=== PATIENT | male | born 1955 | race Caucasian/White ===

== ENCOUNTER 2016-11-29 16:21 | Inpatient (IN) | payer OTHER ==
--- NOTE | 2016-11-29 16:58 | EDPHY ---
H & P Stated Complaint: DIALYSIS, RETAINING FLUID, DIFFICULTY BREATHING HPI/ROS: CHIEF COMPLAINT: Shortness of breath, decreased output on peritoneal dialysis HISTORY OF PRESENT ILLNESS: 2 3 history of increasing shortness of breath. It was mild at 1st and has steadily worsened to moderate or severe. Associated with orthopnea. Able to walk very short distances not have any take a break. There is no chest pain at any time with this. does improve the rest. No fever or chills. No changes in his urine output. Has an extensive medical history including HIV positive, end-stage renal disease on nightly home peritoneal dialysis, hypertension and coronary artery disease. He reports decreased output of his peritoneal dialysis catheter at night over the past 2 days. He feels that it is still working but is not enough fluid out of it. wears daily oxygen by nasal cannula, and hesitant to increase from 2 L to 5 L At all times over the past few days. No fever. No other associated complaints or modifying factors. He has not missed any dialysis. Providers: Nephrology: Dr. Carranza Primary care physician: Dr. Velasquez infectious disease: [place] REVIEW OF SYSTEMS: Ten systems reviewed and are negative unless otherwise noted in the HPI EXAMINATION General Appearance: Alert, no distress Head: normocephalic, atraumatic Eyes: Pupils equal and round, no conjunctival pallor or injection ENT, Mouth: Mucous membranes moist Neck: Normal inspection, supple, non-tender Respiratory: Lungs are clear to all keyes the left. There are absent and diminished breath sounds on the right. No tympany of the right. Daughter percussion on the right. Cardiovascular: Regular rate and rhythm Gastrointestinal: Abdomen is soft and nontender Back: non-tender, no bony abnormalities Neurological: A&O, nonfocal, No pronator drift. Two through 12 grossly intact. Skin: Warm and dry, no rash Extremities: Nontender, 1+ symmetric pedal edema Psychiatric: Mood and affect normal DIFFERENTIAL DIAGNOSES: Including but not limited to pleural effusion, pneumonia, sepsis, renal failure with volume overload, CHF. MDM: Acute right-sided pleural effusion the patient on end-stage renal disease on dialysis. He has not missed any dialysis. He does not have any signs of infection. His labs are abnormal but at baseline for him. He is in no acute distress. He is not requiring BiPAP or CPAP. He is stable on 5 L nasal cannula , normotensive and afebrile. He is HIV positive, but he reports an undetectable viral load recently a normal CD4 count recently. I discussed all these findings with the hospitalist, Dr. Valdez. She will admit the patient and has requested a PCU bed. she has also requested that I contact Nephrology, we have a page and I am awaiting their call. Given the patient's use of Eliquis, this complicates the procedure that he will need, thus Dr. Valdez will discuss with interventional Radiology. I will discuss the case with Nephrology to arrange for dialysis while here. 184 I have discussed the case with on-call Nephrology, Dr. Garcia. He informed me that dialysis may not be available until the morning given the time of day. He will discuss with the resources and determine if they are able to do so tonight. He will arrange for dialysis when available. EKG: Interpreted by Dr. Miller SUPERVISION: Case discussed with attending physician. Source: Patient, Family Exam Limitations: No limitations - Personal History Current Tetanus/Diphtheria Vaccine: Yes Tetanus Vaccine Date: 2014 - Medical/Surgical History Hx Asthma: No Hx Chronic Respiratory Disease: No Hx Diabetes: No Hx Cardiac Disease: Yes Hx Renal Disease: Yes Hx Cirrhosis: No Hx Alcoholism: No Hx HIV/AIDS: Yes Hx Splenectomy or Spleen Trauma: No Other PMH: pmh- htn, hiv+, PD dialysis, [facility] - Social History Smoking Status: Never smoked Constitutional: Initial Vital Signs Temperature (C) 97.9 F 11/29/16 16:23 Heart Rate 77 11/29/16 16:23 Respiratory Rate 16 11/29/16 16:23 Blood Pressure 140/44 H 11/29/16 16:23 O2 Sat (%) 91 L 11/29/16 16:23 O2 Delivery Mode Nasal Cannula O2 (L/minute) 3 Allergies/Adverse Reactions: No Known Allergies Allergy (Unverified 11/29/16 16:28) Home Medications: Medication Instructions Recorded AMITRIPTYLINE HCL 11/29/16 Abacavir 11/29/16 Amlodipine Besylate 11/29/16 Aranesp 11/29/16 Calcitriol 11/29/16 Carvedilol 11/29/16 Eliquis 11/29/16 GABAPENTIN 11/29/16 Lamivudine 11/29/16 Lasix 11/29/16 Losartan Potassium 11/29/16 Oxycodone HCl 11/29/16 Pantoprazole Sodium 11/29/16 RENVELA 11/29/16 Raltegravir 11/29/16 Sensipar 11/29/16 Vitamin D3 11/29/16 Medical Decision Making - Data Points Laboratory Results: Laboratory Results 11/29/16 16:54 11/29/16 16:54 11/29/16 11/29/16 17:02 16:54 WBC 4.70 10^3/uL (3.80-9.50) RBC 3.01 L 10^6/uL (4.40-6.38) Hgb 10.3 L g/dL (13.7-17.5) POC Hgb 10.9 L gm/dL (14.5-17.3) Hct 32.5 L % (40.0-51.0) POC Hct 32 L % (42.8-50.6) MCV 108.0 H fL (81.5-99.8) MCH 34.2 H pg (27.9-34.1) MCHC 31.7 L g/dL (32.4-36.7) RDW 14.2 % (11.5-15.2) Plt Count 224 10^3/uL (150-400) MPV 9.8 fL (8.7-11.7) Neut % (Auto) 48.2 % (39.3-74.2) Lymph % (Auto) 29.1 % (15.0-45.0) Sawyer % (Auto) 13.6 H % (4.5-13.0) Eos % (Auto) 8.3 H % (0.6-7.6) Baso % (Auto) 0.6 % (0.3-1.7) Nucleat RBC Rel Count 0.0 % (0.0-0.2) Absolute Neuts (auto) 2.26 10^3/uL (1.70-6.50) Absolute Lymphs (auto) 1.37 10^3/uL (1.00-3.00) Absolute Monos (auto) 0.64 10^3/uL (0.30-0.80) Absolute Eos (auto) 0.39 10^3/uL (0.03-0.40) Absolute Basos (auto) 0.03 10^3/uL (0.02-0.10) Absolute Nucleated RBC 0.00 10^3/uL (0-0.01) Immature Gran % 0.2 % (0.0-1.1) Immature Gran # 0.01 10^3/uL (0.00-0.10) PT 14.4 SEC (12.0-15.0) INR 1.13 (0.83-1.16) APTT 33.9 SEC (23.0-38.0) VBG Lactic Acid 1.1 mmol/L (0.7-2.1) POC Sodium 142 mEq/L (134-144) Sodium 145 H mEq/L (134-144) POC Potassium 4.0 mEq/L (3.3-5.0) Potassium 4.1 mEq/L (3.5-5.2) POC Chloride 98 mEq/L (96-108) Chloride 98 mEq/L (97-110) Carbon Dioxide 29 mEq/l (22-31) Anion Gap 18 mEq/L (8-16) POC BUN 84 H mg/dL (7-23) BUN 78 H mg/dL (7-23) Creatinine 8.5 H* mg/dL (0.7-1.3) POC Creatinine 8.0 H* mg/dL (0.8-1.5) Estimated GFR 6 Glucose 121 H mg/dL (70-100) POC Glucose 131 H mg/dL (70-100) Calcium 8.9 mg/dL (8.5-10.4) Phosphorus 6.7 H mg/dL (2.5-4.5) Total Bilirubin 0.5 mg/dL (0.1-1.4) Conjugated Bilirubin 0.4 mg/dL (0.0-0.5) Unconjugated Bilirubin 0.1 mg/dL (0.0-1.1) AST 28 IU/L (17-59) ALT 42 IU/L (21-72) Alkaline Phosphatase 188 H IU/L (38-126) NT-Pro-B Natriuret Pep 2830 H pg/mL (0-125) Total Protein 7.7 g/dL (6.3-8.2) Albumin 3.8 g/dL (3.5-5.0) Point of Care Test Results: 11/29/16 17:02 POC Sodium 142 POC Potassium 4.0 POC Chloride 98 POC BUN 84 H POC Creatinine 8.0 H* POC Glucose 131 H Departure - Departure Clinical Impression: End stage renal disease on dialysis, Dyspnea, Volume overload Condition: Good
[2016-11-29 17:15] LABS: % IMMATURE GRANULYOCYTES 0.2 % (0.0-1.1); ABSOLUTE IMMATURE GRANULOCYTES 0.01 10^3/uL (0.00-0.10); ADD DIFF? NO; ADD MORPH? NO; ADD SCAN? NO; ATYPICAL LYMPHOCYTE FLAG 0 (0-99); FRAGMENT RBC FLAG 0 (0-99); HEMATOCRIT 32.5 % (40.0-51.0); HEMOGLOBIN 10.3 g/dL (13.7-17.5); LEFT SHIFT FLG 0 (0-99); LIPEMIA HEMOLYSIS FLAG 80 (0-99); MEAN CELL HEMOGLOBIN 34.2 pg (27.9-34.1); MEAN CELL HEMOGLOBIN CONCENTR. 31.7 g/dL (32.4-36.7); MEAN PLATELET VOLUME 9.8 fL (8.7-11.7); PLATELET CLUMPS FLAG 20 (0-99); PLATELET COUNT 224 10^3/uL (150-400); RED BLOOD CELL COUNT 3.01 10^6/uL (4.40-6.38); RED CELL DISTRIBUTION WIDTH 14.2 % (11.5-15.2)
--- NOTE | 2016-11-29 17:17 | CPEKG ---
Heart Rate: 67 RR Interval: 896 P-R Interval: 244 QRSD Interval: 124 QT Interval: 440 QTC Interval: 465 P [place]: 37 QRS [place]: -3 T Wave [place]: 36 EKG Severity - ABNORMAL ECG - EKG Impression: SINUS RHYTHM EKG Impression: FIRST DEGREE AV BLOCK EKG Impression: NONSPECIFIC INTRAVENTRICULAR CONDUCTION DELAY EKG Impression: PROBABLE LEFT VENTRICULAR HYPERTROPHY Electronically Signed By: Maury Miller 29-Nov-2016 20:49:51
[2016-11-29 17:26] LABS: INR 1.13 (0.83-1.16); PROTIME(PATIENT) 14.4 SEC (12.0-15.0)
[2016-11-29 17:27] LABS: APTT 33.9 SEC (23.0-38.0)
[2016-11-29 17:30] LABS: ANION GAP 18 mEq/L (8-16); CALCIUM 8.9 mg/dL (8.5-10.4); CARBON DIOXIDE 29 mEq/l (22-31); CHLORIDE 98 mEq/L (97-110); GLOMERULAR FILTRATION RATE 6; GLUCOSE 121 mg/dL (70-100); POTASSIUM 4.1 mEq/L (3.5-5.2); SODIUM 145 mEq/L (134-144); TOTAL PROTEIN 7.7 g/dL (6.3-8.2)
[2016-11-29 17:31] LABS: ALANINE AMINOTRANSFERASE 42 IU/L (21-72); ALBUMIN 3.8 g/dL (3.5-5.0); ALKALINE PHOSPHATASE 188 IU/L (38-126); ASPARTATE AMINOTRANSFERASE 28 IU/L (17-59); BILIRUBIN,TOTAL 0.5 mg/dL (0.1-1.4); BILIRUBIN-CONJUGATED 0.4 mg/dL (0.0-0.5); BILIRUBIN-UNCONJUGATED 0.1 mg/dL (0.0-1.1)
--- NOTE | 2016-11-29 17:46 | DX ---
AP Portable Chest November 29, 2016 Clinical Indications: Dyspnea. Comparison: July 18, 2015. Findings: Compared to the prior examination, cardiomegaly has increased significantly. There is a n ew large right pleural effusion, with adjacent compressive atelectasis or consolidation. There is so me retrocardiac atelectatic change. Rounded calcification in the upper abdomen versus cardiac calcif ication is unchanged and probably benign. Interval removal of the dialysis catheter and PIC line. Impression: Progressive congestive heart failure, with a large right effusion and atelectasis. Critical results were relayed by Dr. Brice to Ean Bedoya PA-C, on November 29, 2016 at 1722 hours . E:MELANIE/anne marie
[2016-11-29 17:47] LABS: CREATININE 8.5 mg/dL (0.7-1.3)
[2016-11-29] MEDS ORDERED: ACETAMINOPHEN 325 MG TAB PO PRN (20:46)
[2016-11-29] MEDS ORDERED: HYDROmorphONE/DILAUDID 1 MG/ML SYR IVP PRN (20:46)
[2016-11-29] MEDS ORDERED: ONDANSETRON 4 MG/2 ML VIAL IVP PRN (20:46)
[2016-11-29] MEDS ORDERED: ALBUTEROL 3 ML DEYVIAL IH PRN (20:46)
[2016-11-29] MEDS ORDERED: ONDANSETRON DISINTEGRATING 4 MG TAB PO PRN (20:46)
[2016-11-29] MEDS ORDERED: FUROSEMIDE 100 MG/10 ML VIAL IVP ONE (20:56)
[2016-11-29] MEDS ORDERED: NON-FORMULARY NEW DRUG (Losartan Potassium [Cozaar] 100 MG) PO SCH (21:00)
[2016-11-29] MEDS ORDERED: ABACAVIR SULFATE 300 MG PO SCH (21:00)
[2016-11-29] MEDS ORDERED: RALTEGRAVIR 400 MG TAB PO SCH (21:00)
[2016-11-29] MEDS ORDERED: LAMIVUDINE PO SCH (21:00)
[2016-11-29] MEDS ORDERED: NON-FORMULARY NEW DRUG (Carvedilol [Coreg] 12.5 MG) PO SCH (21:00)
[2016-11-29] MEDS ORDERED: hydrALAZINE 20 MG/ML VIAL IVP PRN (21:22)
[2016-11-29] MEDS: amLODIPine BESYLATE 5 MG TAB PO SCH (21:31)
[2016-11-29] MEDS: LOSARTAN POTASSIUM 50 MG TAB PO SCH (21:31)
[2016-11-29] MEDS: GABAPENTIN 300 MG CAP PO SCH (21:32)
[2016-11-29] MEDS: CARVEDILOL 6.25 MG TAB PO SCH (21:32)
[2016-11-29] MEDS: PANTOPRAZOLE SODIUM 40 MG TAB PO SCH (21:32)
--- NOTE | 2016-11-29 22:15 | GHP ---
[f rep st] HISTORY AND PHYSICAL DATE OF ADMISSION: 11/29/2016 CHIEF COMPLAINT: Shortness of breath. HISTORY OF PRESENT ILLNESS: Mr. Thomas is a 61-year-old male with a history of end-stage renal disease, coronary artery disease, hypertension, and HIV who presents to the emergency department with worsening shortness of breath over the past several days. He normally uses 2 L of oxygen by nasal cannula at home but has recently required up to 5 L/minute. He is followed by Dr. Carranza at [facility] for his ESRD and uses nightly home peritoneal dialysis for volume management. However, over the past several days, he has not been having appropriate output from his peritoneal dialysis catheter. His weight is up at least 7 pounds from his dry weight of 147 lbs. He has developed increasing shortness of breath and ultimately presents to the emergency department today for evaluation. He denies chest pain. He denies fevers or chills. He does have a chronic cough which is nonproductive. He denies abdominal pain, nausea, vomiting, or diarrhea. In the emergency department, he was found to have a large right pleural effusion and is admitted to the hospital for further management. PAST MEDICAL HISTORY: 1. End-stage renal disease, on peritoneal dialysis. 2. History of atrial fibrillation. 3. History of CVA. 4. Chronic anticoagulation on Eliquis. 5. HIV. 6. Hypertension. 7. Coronary artery disease. 8. History of systolic heart failure. 9. Hypertensive cardiomyopathy. PAST SURGICAL HISTORY: Peritoneal dialysis catheter placement. MEDICATIONS: Please see [facility] for complete updated outpatient medication list. ALLERGIES: He has no known drug allergies. FAMILY HISTORY: Reviewed and is noncontributory. SOCIAL HISTORY: The patient lives at home with his . He is a lifetime nonsmoker. He denies alcohol or drug use. REVIEW OF SYSTEMS: A 10-point review of systems was performed and is negative except as per HPI. PHYSICAL EXAMINATION: VITAL SIGNS: Upon my evaluation, temperature is 36.4, blood pressure 190/85, heart rate 77, respiratory rate 18. He is 94% on 5 L of oxygen by nasal cannula. GENERAL: The patient is awake, alert, oriented, and in no acute distress. HEENT: Head is atraumatic, normocephalic. Pupils equal , round, reactive to light. Extraocular muscles intact. Oropharynx is clear. Mucous membranes are moist. NECK: Supple. JVD is present. HEART: Regular rate and rhythm. LUNGS: Diminished on the right side. Clear on the left. ABDOMEN: Soft, protuberant, nontender with moderate distention. Normoactive bowel sounds are present. EXTREMITIES: He has trace bilateral lower extremity edema. NEUROLOGIC: Grossly nonfocal. LABORATORY DATA: CBC reveals a normal white blood cell count of 4.7, hemoglobin 10.3, hematocrit 32.5, platelets of 224. There is no neutrophilia. INR is 1.13. Lactic acid 1.1. Complete metabolic panel is remarkable for a sodium of 145, BUN 78, creatinine 8.5, blood sugar is 121. Alkaline phosphatase is elevated at 188, NT proBNP 2830. Chest x-ray: Reveals a new large right pleural effusion with possible adjacent compressive atelectasis versus consolidation. Moderate cardiomegaly is noted which is increased from prior and suggestive of progressive congestive heart failure. EKG shows normal sinus rhythm without ST-segment or T-wave changes suggestive of acute ischemia. ASSESSMENT AND PLAN: Mr. Thomas is a 61-year-old male with history of end- stage renal disease, on peritoneal dialysis who presents to the emergency department increasing shortness of breath and is admitted for further management. 1. Acute on chronic hypoxemic respiratory failure. This is likely multifactorial including acute on chronic systolic heart failure and malfunctioning peritoneal dialysis system, with a new large right pleural effusion. I have low suspicion for an infectious etiology, given that he is afebrile, has a normal white count, and a normal lactate. I query if he has had some peritoneal fluid migrate into his right hemithorax. It seems unusual to have a unilateral pleural effusion in the setting of acute heart failure. He certainly needs a thoracentesis. I have discussed the case with our interventional radiologist, and since the patient did take a dose of Eliquis this morning, in weighing the risk and benefit, we elected to delay his thoracentesis until the morning at which point he will be 24 hours off Eliquis. Thoracentesis and fluid analysis, including cytology, are ordered. Should he develop fevers or evidence of infection, would start antibiotics. I am going to give him 120 mg of IV Lasix now, monitor I&O's and daily weights. His Eliquis is held. Cont supplemental oxygen as needed. 2. End-stage renal disease with peritoneal dialysis catheter which has been malfunctioning. He does make some urine, <1L per day. I discussed the case with grain operations manager Olap Developer, Dr. Garcia, and due to his Eliquis use, it is not recommended to proceed with central venous access for emergent dialysis. He will be seen by Nephrology in the morning and may need to transition to hemodialysis. As above, we will give IV Lasix tonight. Renal is aware of his status. 3. History of atrial fibrillation with a prior stroke as above. Patient is on Eliquis. He has a CHADS-VASc score of 4 which gives him an 8.5% annual stroke risk. We discussed stroke risk versus risk of respiratory failure and ultimately the patient is in agreement with holding his Eliquis tonight in preparation for a thoracentesis in the morning. He is rate controlled on carvedilol, and he is in normal sinus rhythm at the time of presentation. 4. HIV positive. This broadens the differential for his pleural effusion though he does not appear infected. The patient reports having recently had a normal CD4 count. Will send a CD4 T lymphocyte level. He is followed closely by Infectious Disease at OSH. Will continue his outpatient HAART. 5. Hypertension. The patient is quite hypertensive on admission with a blood pressure of 190 systolic. He is due for several of his antihypertensive medications this evening, so we will give these and we will also add p.r.n. hydralazine as needed. 6. History of coronary artery disease. This is stable. The patient is chest pain-free and has a reassuring EKG. 7. Chronic indwelling Badillo catheter. The patient has a plan for placement of a suprapubic catheter later this week and was going to hold his Eliquis for that purpose with a planned heparin bridge. This may need to be delayed depending on the course of his hospitalization. He has no symptoms suggestive of acute urinary tract infection. 8. DVT prophylaxis. We will place SCDs for now. As above, Eliquis is held. CODE STATUS: Patient is full code. DISPOSITION: Patient is admitted to inpatient status and will likely require greater than 48 hours hospitalization for ongoing management of his acute hypoxemic respiratory failure and new right pleural effusion. /[id number]/MODL MTDD
[2016-11-29] MEDS: RALTEGRAVIR 400 MG TAB PO SCH (23:16)
[2016-11-29] MEDS: ABACAVIR SULFATE 300 MG PO SCH (23:16)
[2016-11-29] MEDS: AMITRIPTYLINE HCL 50 MG TAB PO SCH (23:17)
[2016-11-29] MEDS: CINACALCET HCL 30 MG TAB PO SCH (23:18)
[2016-11-30] MEDS ORDERED: LAMIVUDINE PO SCH ×2 (00:50→21:00)
[2016-11-30] MEDS: LAMIVUDINE 10 MG/ML PO SCH ×2 (01:57→20:36)
[2016-11-30 05:07] LABS: % IMMATURE GRANULYOCYTES 0.2 % (0.0-1.1); ABSOLUTE IMMATURE GRANULOCYTES 0.01 10^3/uL (0.00-0.10); ADD DIFF? NO; ADD MORPH? NO; ADD SCAN? NO; ATYPICAL LYMPHOCYTE FLAG 10 (0-99); FRAGMENT RBC FLAG 0 (0-99); HEMATOCRIT 27.5 % (40.0-51.0); HEMOGLOBIN 8.6 g/dL (13.7-17.5); LEFT SHIFT FLG 0 (0-99); LIPEMIA HEMOLYSIS FLAG 80 (0-99); MEAN CELL HEMOGLOBIN 34.4 pg (27.9-34.1); MEAN CELL HEMOGLOBIN CONCENTR. 31.3 g/dL (32.4-36.7); MEAN PLATELET VOLUME 9.7 fL (8.7-11.7); PLATELET CLUMPS FLAG 10 (0-99); PLATELET COUNT 187 10^3/uL (150-400); RED CELL DISTRIBUTION WIDTH 14.3 % (11.5-15.2)
[2016-11-30 05:16] LABS: INR 1.25 (0.83-1.16); PROTIME(PATIENT) 15.7 SEC (12.0-15.0)
[2016-11-30 05:24] LABS: ALANINE AMINOTRANSFERASE 37 IU/L (21-72); ALKALINE PHOSPHATASE 169 IU/L (38-126); ANION GAP 11 mEq/L (8-16); ASPARTATE AMINOTRANSFERASE 27 IU/L (17-59); BILIRUBIN,TOTAL 0.4 mg/dL (0.1-1.4); CALCIUM 8.3 mg/dL (8.5-10.4); CARBON DIOXIDE 31 mEq/l (22-31); CHLORIDE 101 mEq/L (97-110); GLOMERULAR FILTRATION RATE 6; GLUCOSE 84 mg/dL (70-100); LACTATE DEHYDROGENASE 378 IU/L (313-618); MAGNESIUM 2.5 mg/dL (1.6-2.3); POTASSIUM 4.2 mEq/L (3.5-5.2); SODIUM 143 mEq/L (134-144); TOTAL PROTEIN 6.3 g/dL (6.3-8.2)
[2016-11-30 05:28] LABS: CREATININE 9.1 mg/dL (0.7-1.3)
[2016-11-30] MEDS: SEVELAMER HCL 800 MG TAB PO SCH ×3 (07:52→17:53)
[2016-11-30] MEDS: GABAPENTIN 300 MG CAP PO SCH ×2 (07:53→20:33)
[2016-11-30] MEDS: amLODIPine BESYLATE 5 MG TAB PO SCH ×2 (07:53→20:34)
[2016-11-30] MEDS: FUROSEMIDE 80 MG TAB PO SCH ×2 (07:53→15:46)
[2016-11-30] MEDS: PANTOPRAZOLE SODIUM 40 MG TAB PO SCH ×2 (07:54→20:34)
[2016-11-30] MEDS: CARVEDILOL 6.25 MG TAB PO SCH ×2 (07:54→20:35)
[2016-11-30] MEDS: RALTEGRAVIR 400 MG TAB PO SCH ×2 (07:57→20:36)
[2016-11-30] MEDS: ABACAVIR SULFATE 300 MG PO SCH ×2 (07:57→20:35)
[2016-11-30] MEDS ORDERED: NON-FORMULARY NEW DRUG (Sevelamer Carbonate [Renvela] 800 MG) PO SCH (08:00)
[2016-11-30] MEDS ORDERED: LIDOCAINE 1% 30 ML SDV ONE (09:55)
[2016-11-30] MEDS ORDERED: NA BICARBONATE 50 MEQ/50 ML VIAL ONE (09:56)
--- NOTE | 2016-11-30 10:01 | ECHO ---
[id number] + + [id number] : : [place] [address] : : [phone] + Adult Echocardiographic Report + ------+ :Name: ALETHEA JADE DStudy Date: 11/30/2016 07:32 AM : : Hospital Admission Number: [id number] Locatio n: 211: :: 1955 Gender: Male Height: 69 in : :Age: 61 yrs Race: WH Weight: 155 lb : :Reason For Study: Eval LV Fx : : BSA: 1.9 meters 2 : :History: SOB, Decreased Sat's, Pleural Effusion : + ------+ MMode/2D Measurements & Calculations IVSd: 2.0 cm LVIDd: 5.3 cm FS: 40.7 % MV Diam: 3.0 cm LVPWd: 1.8 cm LVIDs: 3.1 cm EDV(Teich): 135.7 ml ESV(Teich): 39.2 ml EF(Teich): 71.1 % Ao root diam: 3.1 cm LVOT diam: 2.1 cm ACS: 2.1 cm LVOT area: 3.5 cm2 LA dimension: 4.2 cm Normal Measurement Values: + + :LVIDd (3.5-5.7cm) IVSd (0.6-1.1cm) LVPWd (0.6-1.1cm) Aortic Root (2.0-3.7cm)Left Atrium (1.5-4.0cm): :LV Vol(d) (76-115ml) LV Vol(s) (29-48ml) Ejec Fraction (50-65%)PV Dallin (0.6- 1.2m/s) TV Dallin (0.4-1.0m/s) : :MV E Dallin (0.8-1.0m/s)MV A Dallin (0.3-1.0m/s)LVOT Dallin (0.7-1.2m/s) Asc Ao Dallin ( 0.9-1.8m/s) : + + Doppler Measurements & Calculations MV V2 max: Ao V2 max: LV V1 mean PG: MR max dallin: 186.0 cm/sec 177.1 cm/sec 2.5 mmHg 538.0 cm/sec MV max P.8 mmHg Ao max PG: LV V1 mean: MR max PG: MV V2 mean: 12.5 mmHg 72.8 cm/sec 115.8 mmHg 108.1 cm/sec Ao mean PG: LV V1 VTI: MV mean P.9 mmHg 6.6 mmHg 26.9 cm MV V2 VTI: 33.5 cm Ao V2 mean: MV area (1 diam): 119.9 cm/sec 7.1 cm2 Ao V2 VTI: 36.7 cm KENYA(I,D): 2.5 cm2 MVA(VTI): 2.8 cm2 MV Flow area(1diam): 7.1 cm2 MR(RF 1 diam): 6.6 % SV(MV 1 diam): PA V2 max: TR max dallin: 236.7 ml 153.4 cm/sec 348.8 cm/sec SI(MV 1 diam): PA max PG: TR max P.7 ml/m2 9.4 mmHg 48.7 mmHg SV(LVOT): 93.2 ml RAP systole: 5.0 mmHg RVSP(TR): 53.7 mmHg RF(MV,Ao)(1 diam): - 0.15 RF(MV,LVOT)(1diam): 0.61 Left Ventricle The left ventricle is normal in size. There is moderate concentric left ventricular hypertrophy. The left ventricular ejection fraction is normal. There is Doppler evidence for diastolic dysfunction. Ejection Fraction = 72%. No regional wall motion abnormalities noted. Right Ventricle The right ventricle is normal in size and function. Atria The left atrium is mild to moderately dilated. The right atrium is mild to moderately dilated. Known PFO from [place]. Mitral Valve There is mild mitral annular calcification. There is no evidence of mitral valve prolapse. There is no mitral valve stenosis. There is mild mitral regurgitation. Tricuspid Valve Normal tricuspid valve. There is mild tricuspid regurgitation. Right ventricular systolic pressure is 53mmHg. There is Doppler evidence for moderate pulmonary hypertension. Aortic Valve The aortic valve is trileaflet. There is no aortic stenosis. There is no aortic insufficiency. Pulmonic Valve The pulmonic valve is normal in structure and function. Great Vessels The aortic root is normal size. Pericardium/Pleural There is no pericardial effusion. There is a moderate pleural effusion. Conclusion A complete two-dimensional transthoracic echocardiogram was performed (2D, M-mode, Doppler and color flow Doppler). There is moderate concentric left ventricular hypertrophy. The left ventricular ejection fraction is normal. There is Doppler evidence for diastolic dysfunction. Ejection Fraction = 72%. No regional wall motion abnormalities noted. The left atrium is mild to moderately dilated. The right atrium is mild to moderately dilated. Known PFO from [place] There is mild mitral regurgitation. There is mild tricuspid regurgitation. Right ventricular systolic pressure is 53mmHg. There is Doppler evidence for moderate pulmonary hypertension. The aortic valve is trileaflet. There is no aortic insufficiency. The pulmonic valve is normal in structure and function. There is no pericardial effusion. There is a moderate pleural effusion. Final Reading Physician: Axel Celaya signed on 11/30/2016 10:00 AM Ordering Physician: Valeria Valdez Performed By: Samy Gonzalez, CS
[2016-11-30 12:34] LABS: LD, PLEURAL FLUID 290 IU/L
--- NOTE | 2016-11-30 12:44 | SOAPPROG ---
SOAP Progress Note Assessment/Plan: Assessment:Plan: ESRD on PD with recurrent R pleural effusion -had R VATS pleurodesis back on 05/26/2014 -fluid does not have high glucose level that one would expect from his dialysis -his presentation does not appear to me to be related to primary failure of his peritoneal membrane, especially with the fluid being confined to the R hemithorax -will continue his current PD -he will need surgical consultation with Dr. Sloan for definitive Rx of this problem given his past history. -I do not think that change of modality to hemodialysis would alter this issue 11/30/16 12:41 Subjective: SOB Objective: Vital Signs Temp Pulse Resp BP Pulse Ox 36.4 C 83 18 157/72 H 89 L 11/30/16 08:29 11/30/16 08:29 11/30/16 08:29 11/30/16 08:29 11/30/16 08:29 Laboratory Results 11/30/16 04:55 11/30/16 04:55 11/29/16 11/30/16 12/01/16 05:59 05:59 05:59 Intake Total 150 Output Total 250 150 Balance -100 -150 PT 15.7 SEC (12.0-15.0) H 11/30/16 04:55 INR 1.25 (0.83-1.16) H 11/30/16 04:55 Physical Exam - Physical Exam General Appearance: WD/WN, alert, mild distress EENT: normal ENT inspection Neck: normal inspection Respiratory: lungs clear (on left), decreased breath sounds (throughout Right chest) Cardiac/Chest: other (irreg) Abdomen: normal bowel sounds, non-tender, soft, other (exit site perfect) Extremities: No swelling ICD10 Worksheet Patient Problems: Problems Problem Status Diagnosed Dyspnea Acute End stage renal disease on dialysis Acute Volume overload Acute Afib Acute CHF (congestive heart failure) Acute Neuropathy Acute Pleural effusion on right Acute Pneumonia Acute
--- NOTE | 2016-11-30 13:11 | HOSPPROG ---
Hospitalist Progress Note Assessment/Plan: DIAGNOSIS: # ACUTE HYPOXEMIC RESPIRATORY FAILURE DUE TO RECURRENT LARGE R PLEURAL EFFUSION , WHICH HAS BEEN CHRONIC . -the patient does not have significant signs of fluid accumulation other than pleural effusion, so this is not a matter of volume overload per se -previous history of VATS/pleurodesis on the right by Dr. Sloan; in the past trial of switching to hemodialysis did not result in significant improvement in the pleural effusion -Dr. Watson feels that this is not due to dialysis related issues; current sample of his pleural fluid is NOT consistent with leak of dialysis fluid across the diaphragm -thoracentesis has been done on the right today # END-STAGE RENAL DISEASE ON PERITONEAL DIALYSIS FOR 3-1/2 YEARS # CHRONIC ATRIAL FIBRILLATION, CONTROLLED # CORONARY ARTERY DISEASE, STABLE # CHRONIC HIV INFECTION ON ANTI-RETROVIRAL PLANS: -continue peritoneal dialysis at this time -Consultation with Dr. Sloan -continue cardiac and HIV meds I have discussed the patient's condition and care plan in detail Dr. Alexis Watson. I will review his situation with Dr. Emmanuel Sloan today. SUBJECTIVE: Still with shortness of breath when I visited him prior to his thoracentesis, No fever no pain OBJECTIVE Vitals reviewed: Stable overall but using 5-6 L of nasal cannula oxygen hospital monitor, my personal review: Exam: alert oriented skin warm dry color ok resps mildly labored lungs decreased BSs on the right heart regular abd soft nondistended nontender, bowel sounds present limbs warm, no edema iv site ok Objective: Vital Signs Temp Pulse Resp BP Pulse Ox 36.8 C 76 17 127/64 H 93 11/30/16 12:00 11/30/16 12:00 11/30/16 12:00 11/30/16 12:00 11/30/16 12:00 Laboratory Results 11/30/16 04:55 11/30/16 04:55 11/29/16 11/30/16 12/01/16 06:59 06:59 06:59 Intake Total 150 Output Total 250 150 Balance -100 -150 PT 15.7 SEC (12.0-15.0) H 11/30/16 04:55 INR 1.25 (0.83-1.16) H 11/30/16 04:55 ICD10 Worksheet Patient Problems: Problems Problem Status Diagnosed Dyspnea Acute End stage renal disease on dialysis Acute Volume overload Acute Afib Acute CHF (congestive heart failure) Acute Neuropathy Acute Pleural effusion on right Acute Pneumonia Acute
--- NOTE | 2016-11-30 13:47 | GCON ---
[f rep st] CONSULTATION NEPHROLOGY CONSULTATION. DATE OF CONSULTATION: 11/30/2016 REASON FOR ADMISSION: 1. End-stage renal disease on peritoneal dialysis. 2. Shortness of breath with a large right pleural effusion. RECOMMENDATIONS: 1. Thoracentesis. 2. Evaluate pleural fluid to see if this represents accumulation of dialysate in the right pleural space. 3. Consider surgical consultation for pleurodesis if indicated. 4. Consider backup hemodialysis if it appears patient is unable to tolerate ongoing peritoneal dialysis. HISTORY OF PRESENT ILLNESS: The patient is a very pleasant 61-year-old gentleman I have been asked to consult on by Valeria Valdez. The patient is on dialysis for his end stage renal disease due to hypertension and probable tenofovir toxicity. He had a PD catheter placed back in July of 2013. He has been on dialysis since 2013. His dialysis has been complicated by a right- sided pleural effusion. He ultimately underwent a right VATS procedure by Dr. Sloan on 05/26/2014. He has had some backup hemodialysis during that time related to a rehab stay. He states that he has been having worsening shortness of breath with increased oxygen requirements. He decided to seek emergency room attention when he found he was requiring 5 L of nasal cannula oxygen to keep his oxygen saturation at 90 %. On admission to the emergency room, he was found to have a large, right pleural effusion occupying approximately 3/4 of his right hemithorax. He has underlying hypertensive cardiomyopathy. Echocardiogram has shown moderate LVH with an ejection fraction of 72%. He has a mildly to moderate enlarged right atrium with the known presence of a PFO. He has mildly elevated right ventricular systolic pressure of 53, consistent with moderate pulmonary hypertension. PAST MEDICAL HISTORY: HIV, end-stage renal disease, felt primarily due to hypertension with possible tenofovir toxicity, stroke, hypertension, coronary artery disease, hyperparathyroidism, anemia and hyperlipidemia. MEDICATIONS: He is on Eliquis for anticoagulation due to his atrial fibrillation. Outpatient medications have been Sensipar 30 mg daily, Renvela 800 mg one with each meal; Raltegravir 400 mg twice a day, pantoprazole 40 mg twice daily, oxycodone p.r.n., Losartan 100 mg at bedtime, Lasix 80 mg orally twice daily, gabapentin 300 mg twice daily, Eliquis 2.5 mg twice daily, Carvedilol 12.5 mg twice daily, Rocaltrol 0.25 mcg Tuesday, Tuesday, Tuesday; Aranesp, amlodipine 5 mg twice daily, amitriptyline a few milligrams at bedtime, abacavir 300 mg twice daily and Epivir 25 mg at bedtime. ALLERGIES: None. SURGICAL HISTORY: Renal biopsy 05/25/2012, PD catheter placement 08/03/2013, inguinal hernia repair, right VATS procedure 05/26/2014, hemodialysis catheter removal 06/03/2016. FAMILY HISTORY: Noncontributory. SOCIAL HISTORY: Noncontributory. He is a nondrinker, nonsmoker. He is a CPA. He is with 2 children. REVIEW OF SYSTEMS: Negative except for that included in the history of present illness. PHYSICAL EXAMINATION: VITAL SIGNS: Temperature 36.4, pulse 83, respirations 18 , blood pressure 157/72. HEENT: Atraumatic, normocephalic. NECK: Unremarkable. HEART: Irregular with no extra heart sounds. LUNGS: Decreased breath sound throughout the right side and clear to auscultation on the left. ABDOMEN: Benign, soft, nontender. No rebound or guarding. No obvious organomegaly or masses. EXTREMITIES: Free of edema. PD catheter access site looks perfect. LABORATORY DATA: BUN 80, creatinine 9.1, albumin 3, phosphorous 7, potassium 4.2. ASSESSMENT: End-stage renal disease on peritoneal dialysis. The patient has a large right pleural effusion. This appears to be more mechanical in nature. It does not appear to me that he is having primarily failure of his peritoneal membrane. He has no edema. He has no evidence of fluid build up in any other part of his body other than his right chest. He had problems with a right pleural effusion that was recurrent on that side in the past. He underwent a VATS procedure around that time, and that appeared to work pretty well. There was a question of whether the fluid accumulation was related to his use of minoxidil at that time. Given that he is now having a new right pleural effusion without use of minoxidil, I largely feel that this is not related to any sort of drug reaction, but mechanical in nature. He is going to undergo a thoracentesis today. Will see what his lung looks like after that is properly expanded. I suspect he is going to need a repeat evaluation by surgery and possibly considered for another VATS procedure. Given his echocardiogram, it does not appear that he is having primary worsening of his cardiac condition resulting in this problem. Will have to see how his breathing and oxygenation are once this fluid is removed. Fluid characteristics can tell us whether this is transudative or exudative. Obviously, if it is dialysate which is simply crossing some defect in the diaphragm, this should have a very high sugar content. We will continue his regular peritoneal dialysis for now. Further adjustments, including the consideration for backup hemodialysis will be considered depending on his response to the above treatment and evaluation of this fluid. Copy requested to: [facility] /[id number]/MODL MTDD
--- NOTE | 2016-11-30 14:01 | US ---
Ultrasound-Guided Thoracentesis 11/30/2016 at 1027 hours Indication: Right pleural effusion. Crosscutting Measure #226: Current tobacco user: No. Witnessed Consent: Witnessed informed consent was obtained after the risks, benefits, and alternative s of right thoracentesis were explained to the patient and all questions were answered. Procedure: Utilizing sterile technique and ultrasound guidance, the right pleural effusion was locali zed via posterior approach. The skin was prepped with ChloraPrep solution. The skin and soft tissues were numbed with 1% lidocaine with bicarbonate. Utilizing real-time ultrasound visualization, a 6-[facility] catheter was advanced superior to the rib and into the effusion. The inner needle was remove d and the catheter was left in place. 2000 mL of yellow straw-colored fluid removed. The catheter was then removed and manual hemostasis achieved. Sterile dressing was placed. The patient tolerated the procedure well without immediate complications. Impression: 1. Successful ultrasound-guided right thoracentesis. 2. Total volume removed: 2000 ml. 3. Fluid was sent for analysis. 4. No immediate complications. Plan: Chest radiograph to assess for pneumothorax.
--- NOTE | 2016-11-30 14:05 | DX ---
Single Frontal Chest. 11/30/2016 1113. Comparison 11/29/2016 1715 CLINICAL INDICATION: Follow up thoracentesis. Large effusion on the right in a dialysis patient FINDINGS: There is significant improvement in the large pleural effusion on the right side. There is no pneumothorax. Some residual fluid and/or consolidative lung is present at the right base. Heart si ze remains mildly enlarged. Pulmonary vasculature is more distinct today than on the prior examinatio n. IMPRESSION: 1. No pneumothorax post thoracentesis 2. Improving cardiomegaly and chronic fluid overload.
[2016-11-30] MEDS: LOSARTAN POTASSIUM 50 MG TAB PO SCH (20:34)
[2016-11-30] MEDS: AMITRIPTYLINE HCL 50 MG TAB PO SCH (20:35)
[2016-12-01] MEDS: amLODIPine BESYLATE 5 MG TAB PO SCH ×2 (08:01→22:12)
[2016-12-01] MEDS: CALCITRIOL 0.25 MCG CAP PO SCH (08:01)
[2016-12-01] MEDS: GABAPENTIN 300 MG CAP PO SCH ×2 (08:01→22:13)
[2016-12-01] MEDS: PANTOPRAZOLE SODIUM 40 MG TAB PO SCH ×2 (08:01→22:12)
[2016-12-01] MEDS: FUROSEMIDE 80 MG TAB PO SCH ×2 (08:01→15:44)
[2016-12-01] MEDS: SEVELAMER HCL 800 MG TAB PO SCH ×3 (08:02→17:17)
[2016-12-01] MEDS: ABACAVIR SULFATE 300 MG PO SCH ×2 (08:02→22:16)
[2016-12-01] MEDS: CARVEDILOL 6.25 MG TAB PO SCH ×2 (08:02→22:13)
[2016-12-01] MEDS: RALTEGRAVIR 400 MG TAB PO SCH ×2 (08:03→22:17)
[2016-12-01] MEDS ORDERED: HEPARIN 10,000 UNIT/10 ML MDV IVP ONE (10:47)
[2016-12-01] MEDS ORDERED: HEPARIN 10,000 UNIT/10 ML MDV IVP PRN (10:47)
[2016-12-01 11:25] LABS: % IMMATURE GRANULYOCYTES 0.4 % (0.0-1.1); ABSOLUTE IMMATURE GRANULOCYTES 0.02 10^3/uL (0.00-0.10); ADD DIFF? NO; ADD MORPH? NO; ADD SCAN? NO; ATYPICAL LYMPHOCYTE FLAG 10 (0-99); FRAGMENT RBC FLAG 0 (0-99); HEMATOCRIT 27.7 % (40.0-51.0); HEMOGLOBIN 8.7 g/dL (13.7-17.5); LEFT SHIFT FLG 0 (0-99); LIPEMIA HEMOLYSIS FLAG 80 (0-99); MEAN CELL HEMOGLOBIN CONCENTR. 31.4 g/dL (32.4-36.7); MEAN CELL VOLUME 108.2 fL (81.5-99.8); MEAN PLATELET VOLUME 9.6 fL (8.7-11.7); PLATELET CLUMPS FLAG 10 (0-99); PLATELET COUNT 181 10^3/uL (150-400); RED BLOOD CELL COUNT 2.56 10^6/uL (4.40-6.38); RED CELL DISTRIBUTION WIDTH 13.5 % (11.5-15.2)
[2016-12-01] MEDS: HEPARIN/DEXTROSE 500 ML IV SCH (11:29)
[2016-12-01 11:32] LABS: INR 1.17 (0.83-1.16); PROTIME(PATIENT) 14.9 SEC (12.0-15.0)
[2016-12-01 11:33] LABS: APTT 28.9 SEC (23.0-38.0)
[2016-12-01] MEDS: GENTAMICIN 0.1% CREAM TP SCH (11:34)
--- NOTE | 2016-12-01 11:34 | SOAPPROG ---
SOAP Progress Note Assessment/Plan: Assessment: Plan: Subjective: Just completed his over night peritoneal dialysis. Reports UF of 1.9 L. Wt was up to 155 lbs last week, DW 147 lbs. Objective: Vital Signs Temp Pulse Resp BP Pulse Ox 36.7 C 77 14 161/70 H 93 12/01/16 07:39 12/01/16 07:39 12/01/16 07:39 12/01/16 07:39 12/01/16 07:39 Microbiology 11/30/16 10:00 Gram Stain - Final Thoracic Fluid - Aspirate Laboratory Results 12/01/16 11:13 11/30/16 04:55 11/30/16 12/01/16 12/02/16 05:59 05:59 05:59 Intake Total 150 300 Output Total 250 880 Balance -100 -580 PT 15.7 SEC (12.0-15.0) H 11/30/16 04:55 INR 1.25 (0.83-1.16) H 11/30/16 04:55 ICD10 Worksheet Patient Problems: Problems Problem Status Diagnosed Dyspnea Acute End stage renal disease on dialysis Acute Volume overload Acute Afib Acute CHF (congestive heart failure) Acute Neuropathy Acute Pleural effusion on right Acute Pneumonia Acute
--- NOTE | 2016-12-01 11:41 | SOAPPROG ---
SOAP Progress Note Assessment/Plan: Assessment: 1. ESRD. Continue APD using combination of 2.5/4.25% solutions. Good UF with this, near DW today (147 lbs). 2. Pleural effusion. S/p prior VATS. Fluid studies look exudative with low pH. Cytologies sent. Await cxs. Dr. Sloan to consult. Will try to keep on dry side with dialysis, seems there is more than volume overload. Fluid glucose not consistent with leaked PD fluid. 3. Bacteriuria. Has indwelling chronic zavala. No change in urine quality, no bladder pain. Probably colonized and do not need to treat unless develops sxs. 4. Anemia. Hgb dropped to 8.7 from 10s. Stable. Can give procrit if falls further. Plan: 12/01/16 11:40 12/01/16 11:40 12/01/16 11:41 12/01/16 11:42 12/01/16 11:44 Subjective: Just finished PD. Had 1.9 L UF. Wt recently up to 155lbs at home, DW 147 lbs. Had thoracentesis yesterday. 2 L removed. Objective: Vital Signs Temp Pulse Resp BP Pulse Ox 36.7 C 77 14 161/70 H 93 12/01/16 07:39 12/01/16 07:39 12/01/16 07:39 12/01/16 07:39 12/01/16 07:39 Microbiology 11/30/16 10:00 Gram Stain - Final Thoracic Fluid - Aspirate Laboratory Results 12/01/16 11:13 11/30/16 04:55 11/30/16 12/01/16 12/02/16 05:59 05:59 05:59 Intake Total 150 300 Output Total 250 880 200 Balance -100 -580 -200 PT 14.9 SEC (12.0-15.0) 12/01/16 11:13 INR 1.17 (0.83-1.16) H 12/01/16 11:13 Comfortable wm, in bed RRR, no m/g/r CTAB Abdom soft, nontender. LLQ pd cath bandage in place No LE edema ICD10 Worksheet Patient Problems: Problems Problem Status Diagnosed Dyspnea Acute End stage renal disease on dialysis Acute Volume overload Acute Afib Acute CHF (congestive heart failure) Acute Neuropathy Acute Pleural effusion on right Acute Pneumonia Acute
--- NOTE | 2016-12-01 17:11 | HOSPPROG ---
Hospitalist Progress Note Assessment/Plan: * Right pleural effusion * discussed with primary construction quality control manager Dr. Carranza. He believes this is from peritoneal dialysis. Apparently glucose does not need to be elevated. He feels that VATS should be done during his hospitalization. * I have a call out to Dr. Sloan * end-stage renal disease * getting peritoneal dialysis * HIV Subjective: breathing feels lot better. Really wants to go home. Objective: Vital Signs Temp Pulse Resp BP Pulse Ox 36.6 C 74 16 156/63 H 96 12/01/16 15:21 12/01/16 15:21 12/01/16 15:21 12/01/16 15:21 12/01/16 15:21 Microbiology 11/30/16 10:00 Gram Stain - Final Thoracic Fluid - Aspirate Laboratory Results 12/01/16 11:13 11/30/16 04:55 11/30/16 12/01/16 12/02/16 05:59 05:59 05:59 Intake Total 150 300 Output Total 250 880 200 Balance -100 -580 -200 PT 14.9 SEC (12.0-15.0) 12/01/16 11:13 INR 1.17 (0.83-1.16) H 12/01/16 11:13 - Physical Exam Constitutional: no apparent distress, appears nourished, not in pain Eyes: anicteric sclera, EOMI Ears, Nose, Mouth, Throat: moist mucous membranes, hearing normal Cardiovascular: regular rate and rhythym, no murmur, rub, or gallop Respiratory: no respiratory distress, no rales or rhonchi, clear to auscultation Gastrointestinal: normoactive bowel sounds, soft, non-tender abdomen Skin: warm Neurologic: AAOx3 Psychiatric: interacting appropriately, not anxious, not encephalopathic, thought process linear ICD10 Worksheet Patient Problems: Problems Problem Status Diagnosed Dyspnea Acute End stage renal disease on dialysis Acute Volume overload Acute Afib Acute CHF (congestive heart failure) Acute Neuropathy Acute Pleural effusion on right Acute Pneumonia Acute
[2016-12-01] MEDS: AMITRIPTYLINE HCL 50 MG TAB PO SCH (22:13)
[2016-12-01] MEDS: LOSARTAN POTASSIUM 50 MG TAB PO SCH (22:13)
[2016-12-01] MEDS: LAMIVUDINE 10 MG/ML PO SCH (23:14)
[2016-12-02] MEDS: amLODIPine BESYLATE 5 MG TAB PO SCH ×2 (08:27→20:36)
[2016-12-02] MEDS: SEVELAMER HCL 800 MG TAB PO SCH ×3 (08:27→19:01)
[2016-12-02] MEDS: PANTOPRAZOLE SODIUM 40 MG TAB PO SCH ×2 (08:28→20:36)
[2016-12-02] MEDS: CARVEDILOL 6.25 MG TAB PO SCH ×2 (08:28→20:36)
[2016-12-02] MEDS: FUROSEMIDE 80 MG TAB PO SCH ×2 (08:28→15:23)
[2016-12-02] MEDS: GABAPENTIN 300 MG CAP PO SCH ×2 (08:28→20:36)
[2016-12-02] MEDS: RALTEGRAVIR 400 MG TAB PO SCH ×2 (08:28→20:37)
[2016-12-02] MEDS: ABACAVIR SULFATE 300 MG PO SCH ×2 (08:29→20:37)
[2016-12-02] MEDS: GENTAMICIN 0.1% CREAM TP SCH (08:34)
--- NOTE | 2016-12-02 09:56 | SOAPPROG ---
SOAP Progress Note Assessment/Plan: Assessment: 1. ESRD. Continue APD, will use all 4.25% solutions tonight to challenge DW. 2. Pleural effusion. S/p prior VATS. Fluid studies look exudative with low pH. Cytologies sent. Await cxs. Pleural glucose was > serum glucose. Low pH could be d/t acidic PD fluid ( lactate based). I spoke with Dr. Carranza. Has prior hx of peritoneopleural leak/pleurodesis. Very suspicious this may be same issue. Dr. Sloan to consult for repeat VATS as pt really wants to stay on PD. If this is a recurrence on same side, unclear if procedure likely to succeed, may need to convert to hemodialysis. Will try to keep on dry side with dialysis, seems there is more than volume overload. 3. Bacteriuria. Has indwelling chronic zavala. No change in urine quality, no bladder pain. Probably colonized and do not need to treat unless develops sxs. 4. Anemia. Hgb dropped to 8.7 from 10s. Stable. Can give procrit if falls further. Plan: 12/01/16 11:40 12/01/16 11:40 12/01/16 11:41 12/01/16 11:42 12/01/16 11:44 12/02/16 09:45 Subjective: Just off PD. Had 1.4 L UF. Retaining fluid in feet/hips/hands per pt. Objective: Vital Signs Temp Pulse Resp BP Pulse Ox 36.6 C 72 20 175/70 H 98 12/02/16 07:29 12/02/16 07:29 12/02/16 07:29 12/02/16 07:29 12/02/16 07:29 Microbiology 11/30/16 10:00 Gram Stain - Final Thoracic Fluid - Aspirate Laboratory Results 12/01/16 11:13 11/30/16 04:55 12/01/16 12/02/16 12/03/16 05:59 05:59 05:59 Intake Total 300 1391 Output Total 240 640 4598 Balance -580 741 -1500 PT 14.9 SEC (12.0-15.0) 12/01/16 11:13 INR 1.17 (0.83-1.16) H 12/01/16 11:13 Comfortable, in bed RRR, II/ RHYS CTAB anteriorly Abd soft, nt Tr sacral edema ICD10 Worksheet Patient Problems: Problems Problem Status Diagnosed Dyspnea Acute End stage renal disease on dialysis Acute Volume overload Acute Afib Acute CHF (congestive heart failure) Acute Neuropathy Acute Pleural effusion on right Acute Pneumonia Acute
[2016-12-02 11:03] LABS: H/S RATIO 0.6 (>=0.9); LYMPHOCYTES 1.38 thou/mcL (0.82-2.84)
--- NOTE | 2016-12-02 11:03 | HOSPPROG ---
Hospitalist Progress Note Assessment/Plan: * Right pleural effusion * discussed with primary chief science officer Dr. Carranza. He believes this is from peritoneal dialysis. Apparently glucose does not need to be elevated. He feels that VATS should be done during his hospitalization. * Dr jeff will see * end-stage renal disease * getting peritoneal dialysis * HIV Subjective: No new complaints Objective: Vital Signs Temp Pulse Resp BP Pulse Ox 36.6 C 72 20 175/70 H 98 12/02/16 07:29 12/02/16 07:29 12/02/16 07:29 12/02/16 07:29 12/02/16 07:29 Microbiology 11/30/16 10:00 Gram Stain - Final Thoracic Fluid - Aspirate Laboratory Results 12/01/16 11:13 11/30/16 04:55 12/01/16 12/02/16 12/03/16 05:59 05:59 05:59 Intake Total 300 1391 120 Output Total 068 523 3352 Balance -580 741 -1380 PT 14.9 SEC (12.0-15.0) 12/01/16 11:13 INR 1.17 (0.83-1.16) H 12/01/16 11:13 - Physical Exam Constitutional: no apparent distress, appears nourished, not in pain Eyes: anicteric sclera, EOMI Ears, Nose, Mouth, Throat: moist mucous membranes, hearing normal Cardiovascular: regular rate and rhythym, no murmur, rub, or gallop, systolic murmur Respiratory: no respiratory distress, no rales or rhonchi, clear to auscultation Skin: warm Neurologic: AAOx3 Psychiatric: interacting appropriately, not anxious, not encephalopathic, thought process linear ICD10 Worksheet Patient Problems: Problems Problem Status Diagnosed Dyspnea Acute End stage renal disease on dialysis Acute Volume overload Acute Afib Acute CHF (congestive heart failure) Acute Neuropathy Acute Pleural effusion on right Acute Pneumonia Acute
--- NOTE | 2016-12-02 12:13 | SOAPPROG ---
SOAP Progress Note Assessment/Plan: Assessment: 61yo male with recurrent right pleural effusion, s/p thoracentesis, history of VATS right side. Plan: Ct Chest to see if there is hernia in diaphragm Full consult note to follow but if CT does not demonstrate too much fluid it would be fine for patient to go home (if no other issues) and follow up with our office for surgery next week. Discussed with patient who likes the plan as Dr Sloan is out. 12/02/16 12:09 Objective: Vital Signs Temp Pulse Resp BP Pulse Ox 36.5 C 67 13 165/79 H 93 12/02/16 11:00 12/02/16 11:00 12/02/16 11:00 12/02/16 11:00 12/02/16 11:00 Microbiology 11/30/16 10:00 Gram Stain - Final Thoracic Fluid - Aspirate Laboratory Results 12/01/16 11:13 11/30/16 04:55 12/01/16 12/02/16 12/03/16 05:59 05:59 05:59 Intake Total 300 1391 470 Output Total 848 430 4683 Balance -580 741 -1280 PT 14.9 SEC (12.0-15.0) 12/01/16 11:13 INR 1.17 (0.83-1.16) H 12/01/16 11:13 ICD10 Worksheet Patient Problems: Problems Problem Status Diagnosed Dyspnea Acute End stage renal disease on dialysis Acute Volume overload Acute Afib Acute CHF (congestive heart failure) Acute Neuropathy Acute Pleural effusion on right Acute Pneumonia Acute
[2016-12-02] MEDS: HEPARIN/DEXTROSE 500 ML IV SCH (13:21)
--- NOTE | 2016-12-02 13:26 | GCON ---
[f rep st] CONSULTATION REASON FOR CONSULTATION: Surgery has been asked to see this 61-year-old male with a complicated past medical history, who recently presented to the emergency department with shortness of breath. David p revealed a large right pleural effusion, and the patient underwent thoracentesis in which approxima tely 2 L of fluid were removed. The patient has endstage renal disease and uses home peritoneal dial ysis for volume management. He reports just prior to his admission to the hospital his output from his peritoneal dialysis catheter had diminished. He had increased weight. At the moment, the patien t reports he is breathing well. No shortness of breath. No chest pain. No lightheadedness. No fev ers. PAST MEDICAL HISTORY: Endstage renal disease, [place], history of CVA, chronic anticoagulation , HIV, hypertension, coronary artery disease, history of systolic heart failure, hypertension, and ca rdiomyopathy. PAST SURGICAL HISTORY: Peritoneal dialysis catheter placement, VATS procedure with Dr. Sloan in 2013 . ALLERGIES: No known drug allergies. MEDICATIONS: Lasix, Raltegravir, Protonix, Neurontin, Coreg, Norvasc, Cozaar, heparin, Elavil, calci triol. SOCIAL HISTORY: Patient is . He reports his is very healthy and supportive. He is a non smoker. No alcohol or drug use. REVIEW OF SYSTEMS: Please see HPI for pertinent negatives. PHYSICAL EXAM: GENERAL: Patient is a very pleasant alert male, in no apparent distress. VITAL SIGN S: He is currently on 3 L of oxygen and saturation 93%. HEAD AND NECK: Normocephalic atraumatic. C HEST: CTA bilaterally. Right-sided scars consistent with prior VATS procedure. ABDOMEN: Peritonea l dialysis catheter in place. Soft, nontender. EXTREMITIES: No lower extremity edema. Normal dors iain pedis pulses to palpation. IMPRESSION: A 61-year-old male with recurrent right pleural effusion, status post video-assisted tho racoscopic surgery 2013. RECOMMENDATIONS: CT scan of the chest has been ordered to rule out obvious diaphragmatic hernia. I will discuss his case shortly with Dr. Sloan. Patient feels strongly that he would like to continue peritoneal dialysis. Therefore, I am unsure how successful repeated surgery will be, especially if t here is no obvious defect on CAT scan. His chance of recurrence would be high obviously. Also, jonn ent feels very comfortable with going home and following up in our office early next week and schedul ing surgery for later in the week if necessary. If there are no other medical issues, from a Surger y standpoint he could be discharged in the morning, although CAT scan result is pending at this time. I will discuss this case further with Dr. Sloan and Dr. Donahue. /[id number]/MODL
[2016-12-02] MEDS: LOSARTAN POTASSIUM 50 MG TAB PO SCH (20:35)
[2016-12-02] MEDS: AMITRIPTYLINE HCL 50 MG TAB PO SCH (20:37)
[2016-12-02] MEDS: LAMIVUDINE 10 MG/ML PO SCH (20:37)
--- NOTE | 2016-12-02 22:07 | CT ---
CT of the Chest (Without Contrast) Clinical Indications: On dialysis. Feeling sick for three days. Recurrent pleural effusion. Rule out diaphragmatic hernia. Technique: Multidetector helical CT imaging was performed from the superior thoracic inlet to the di aphragm. The radiologist manipulated images at the computer workstation. Dose reduction techniques w ere utilized. Comparison: Chest x-ray November 30, 2016, November 29, 2016. Findings: There is a dense right lower lobe consolidation. Evaluation of the upstream bronchi do n ot show any central obstructing lesions. This looks like a pneumonia or an aspiration pneumonia. As sociated with it is the moderate right lower lobe pleural effusion. If the patient has had this pneu monia or consolidation for quite some time, this could be the cause of the recurrent pleural effusion . Otherwise, there is expected degree of elevation of the right hemidiaphragm, given partial collaps e of the right lower lobe from the consolidation. The lungs are otherwise pretty much clear. There i s no evidence for pulmonary edema. A calcified lesion in the spleen is incidentally noted, unknown significance. Renal parenchymal calcu li are noted on the right. Hyperdense cyst on the right, probable hemorrhagic cyst, measures at 1.5 x 1.7 cm. A low-density cyst on the left, with mild amount of wall calcification, measures 2.9 x 2.7 cm. Vascular calcifications are present extensively throughout the visualized aortic vessels. Visualized large and small bowel are normal. There is partial atrophy of the pancreas. There is a focal cystic lesion at the proximal body of the pancreas, 1.2 x 1.1 cm, that is nonspecifi c. Hounsfield unit measures less than 11. It may represent a simple cyst. IMPRESSIONS 1. Dense right lower lobe consolidation, without a discernible intraluminal or central bronchial obs truction. Associated with this is the moderate right pleural effusion. Primary differential is pneu monia. 2. Low-density cystic lesion at the body of the pancreas, probably an incidental finding. If clinic ally appropriate, CT scan of the abdomen following pancreatic protocol with IV contrast can be done t o further evaluate this. 3. Low-density lesion in the left kidney, indeterminate, also can be further evaluated with either u ltrasound or CT scan. 4. High-density lesion in the right kidney, probably representing a hemorrhagic or proteinaceous cys t. 5. Right renal calculi not causing obstruction.
[2016-12-02] MEDS: CINACALCET HCL 30 MG TAB PO SCH (22:50)
[2016-12-03 06:04] LABS: % IMMATURE GRANULYOCYTES 0.4 % (0.0-1.1); ABSOLUTE IMMATURE GRANULOCYTES 0.02 10^3/uL (0.00-0.10); ADD DIFF? NO; ADD MORPH? NO; ADD SCAN? NO; ATYPICAL LYMPHOCYTE FLAG 10 (0-99); FRAGMENT RBC FLAG 0 (0-99); HEMATOCRIT 30.1 % (40.0-51.0); HEMOGLOBIN 9.6 g/dL (13.7-17.5); LEFT SHIFT FLG 0 (0-99); LIPEMIA HEMOLYSIS FLAG 80 (0-99); MEAN CELL HEMOGLOBIN 33.7 pg (27.9-34.1); MEAN CELL HEMOGLOBIN CONCENTR. 31.9 g/dL (32.4-36.7); MEAN CELL VOLUME 105.6 fL (81.5-99.8); MEAN PLATELET VOLUME 9.9 fL (8.7-11.7); PLATELET CLUMPS FLAG 10 (0-99); PLATELET COUNT 191 10^3/uL (150-400); RED BLOOD CELL COUNT 2.85 10^6/uL (4.40-6.38); RED CELL DISTRIBUTION WIDTH 13.5 % (11.5-15.2)
[2016-12-03 06:37] LABS: ANION GAP 13 mEq/L (8-16); CARBON DIOXIDE 31 mEq/l (22-31); CHLORIDE 98 mEq/L (97-110); GLUCOSE 65 mg/dL (70-100); POTASSIUM 3.9 mEq/L (3.5-5.2); SODIUM 142 mEq/L (134-144)
[2016-12-03 06:44] LABS: CREATININE 8.5 mg/dL (0.7-1.3); GLOMERULAR FILTRATION RATE 6
[2016-12-03] MEDS: CALCITRIOL 0.25 MCG CAP PO SCH (08:29)
[2016-12-03] MEDS: GABAPENTIN 300 MG CAP PO SCH ×2 (08:30→21:07)
[2016-12-03] MEDS: SEVELAMER HCL 800 MG TAB PO SCH ×3 (08:30→17:31)
[2016-12-03] MEDS: PANTOPRAZOLE SODIUM 40 MG TAB PO SCH ×2 (08:30→21:08)
[2016-12-03] MEDS: FUROSEMIDE 80 MG TAB PO SCH ×2 (08:30→14:43)
[2016-12-03] MEDS: amLODIPine BESYLATE 5 MG TAB PO SCH ×2 (08:30→21:08)
[2016-12-03] MEDS: CARVEDILOL 6.25 MG TAB PO SCH ×2 (08:30→21:08)
[2016-12-03] MEDS: ABACAVIR SULFATE 300 MG PO SCH ×2 (08:31→21:15)
[2016-12-03] MEDS: RALTEGRAVIR 400 MG TAB PO SCH ×2 (08:31→21:18)
[2016-12-03] MEDS: GENTAMICIN 0.1% CREAM TP SCH (08:32)
--- NOTE | 2016-12-03 09:37 | SOAPPROG ---
SOAP Progress Note Assessment/Plan: Assessment: 61yo male with recurrent right pleural effusion, s/p thoracentesis, history of VATS right side. Plan: Ct Chest to see if there is hernia in diaphragm Full consult note to follow but if CT does not demonstrate too much fluid it would be fine for patient to go home (if no other issues) and follow up with our office for surgery next week. Discussed with patient who likes the plan as Dr Sloan is out. 12/02/16 12:09 12/03/16 09:35 no new complaints, no worsening SOB, no fevers PE awake alert Chest breath sounds slight decrease on right compared to left abdomen soft nontender, catheter in place Plan discussed with Dr Sloan, surgery TuesdayDec 04, right VATS consent signed and placed in front of chart antibiotics ordered wrote for heparin to be held this evening. NPO after midnight Patient schedule for 8am Tuesday. Objective: Vital Signs Temp Pulse Resp BP Pulse Ox 36.9 C 75 18 150/74 H 95 12/03/16 08:00 12/03/16 08:00 12/03/16 08:00 12/03/16 08:00 12/03/16 08:00 Microbiology 11/30/16 10:00 Gram Stain - Final Thoracic Fluid - Aspirate Body Fluid Culture - Final Laboratory Results 12/03/16 05:45 12/03/16 05:45 12/02/16 12/03/16 12/04/16 05:59 05:59 05:59 Intake Total 1391 720 200 Output Total 650 2400 Balance 741 -1680 200 PT 14.9 SEC (12.0-15.0) 12/01/16 11:13 INR 1.17 (0.83-1.16) H 12/01/16 11:13 ICD10 Worksheet Patient Problems: Problems Problem Status Diagnosed Dyspnea Acute End stage renal disease on dialysis Acute Volume overload Acute Afib Acute CHF (congestive heart failure) Acute Neuropathy Acute Pleural effusion on right Acute Pneumonia Acute
[2016-12-03] MEDS: HEPARIN/DEXTROSE 500 ML IV SCH (12:37)
[2016-12-03] MEDS: AZITHROMYCIN 250 MG TAB PO SCH (14:43)
[2016-12-03] MEDS: AMPICILLIN/SULBACTAM 3 GM in NS 100 ML IV SCH (14:43)
--- NOTE | 2016-12-03 14:50 | SOAPPROG ---
SOAP Progress Note Assessment/Plan: Assessment: ESRD on APD pleuroperitoneal fistula vol overload better possible PNA Plan: PD tonight VAT tomorrow dialysis holiday tomorrow post op resume PD on tuesday12/03/16 14:47 Subjective: feeling better less sob no cp nausea or vomiting tired Objective: Vital Signs Temp Pulse Resp BP Pulse Ox 36.6 C 76 14 136/66 H 94 12/03/16 11:09 12/03/16 11:09 12/03/16 11:09 12/03/16 11:09 12/03/16 11:09 Microbiology 11/29/16 19:50 Urine Culture - Final Urine,Clean Catch Proteus Vulgaris#2 Proteus Vulgaris 11/30/16 10:00 Gram Stain - Final Thoracic Fluid - Aspirate Body Fluid Culture - Final Laboratory Results 12/03/16 05:45 12/03/16 05:45 12/02/16 12/03/16 12/04/16 05:59 05:59 05:59 Intake Total 1391 720 200 Output Total 650 2400 Balance 741 -1680 200 PT 14.9 SEC (12.0-15.0) 12/01/16 11:13 INR 1.17 (0.83-1.16) H 12/01/16 11:13 Physical Exam - Physical Exam General Appearance: alert, thin Respiratory: No rales, No rhonchi, No wheezing Cardiac/Chest: regular rate, rhythm, No edema, No gallop, No friction rub Abdomen: normal bowel sounds, non-tender, soft Extremities: No swelling Neuro/Psych: alert, normal mood/affect, oriented x 3 ICD10 Worksheet Patient Problems: Problems Problem Status Diagnosed Dyspnea Acute End stage renal disease on dialysis Acute Volume overload Acute Afib Acute CHF (congestive heart failure) Acute Neuropathy Acute Pleural effusion on right Acute Pneumonia Acute
--- NOTE | 2016-12-03 16:59 | HOSPPROG ---
Hospitalist Progress Note Assessment/Plan: * Right pleural effusion * discussed with primary refinery operator gas plant Dr. Carranza. He believes this is from peritoneal dialysis. Apparently glucose does not need to be elevated. He feels that VATS should be done during his hospitalization. * VATS scheduled tomorrow * probable right lower lobe pneumonia * possible aspiration * will start IV Unasyn and azithromycin to cover both aspiration and community- acquired pneumonia * rule out aspiration * will get speech evaluation * probably needs a video swallow * end-stage renal disease * getting peritoneal dialysis * HIV Subjective: admits to a cough for several months after eating Objective: Vital Signs Temp Pulse Resp BP Pulse Ox 36.7 C 75 16 144/57 H 96 12/03/16 15:12 12/03/16 15:12 12/03/16 15:12 12/03/16 15:12 12/03/16 15:12 Microbiology 11/29/16 19:50 Urine Culture - Final Urine,Clean Catch Proteus Vulgaris#2 Proteus Vulgaris 11/30/16 10:00 Gram Stain - Final Thoracic Fluid - Aspirate Body Fluid Culture - Final Laboratory Results 12/03/16 05:45 12/03/16 05:45 12/02/16 12/03/16 12/04/16 05:59 05:59 05:59 Intake Total 1391 720 200 Output Total 650 2400 Balance 741 -1680 200 PT 14.9 SEC (12.0-15.0) 12/01/16 11:13 INR 1.17 (0.83-1.16) H 12/01/16 11:13 discussed with surgery and Nephrology CT scan personally reviewed interpreted - Physical Exam Constitutional: no apparent distress, appears nourished, not in pain Eyes: anicteric sclera, EOMI Ears, Nose, Mouth, Throat: moist mucous membranes, hearing normal, ears appear normal Cardiovascular: regular rate and rhythym, no murmur, rub, or gallop Respiratory: no respiratory distress, no rales or rhonchi, reduced air movement ( decreased at right base) Gastrointestinal: normoactive bowel sounds, soft, non-tender abdomen, no palpable masses Neurologic: AAOx3 Psychiatric: interacting appropriately, not anxious, not encephalopathic, thought process linear ICD10 Worksheet Patient Problems: Problems Problem Status Diagnosed Dyspnea Acute End stage renal disease on dialysis Acute Volume overload Acute Afib Acute CHF (congestive heart failure) Acute Neuropathy Acute Pleural effusion on right Acute Pneumonia Acute
[2016-12-03] MEDS ORDERED: LACTULOSE 20 GM/30 ML UDCUP PO PRN (17:14)
[2016-12-03] MEDS ORDERED: BISACODYL 10 MG SUPP PR PRN (17:14)
[2016-12-03] MEDS: SENNOSIDES/DOCUSATE SODIUM TAB PO SCH (21:07)
[2016-12-03] MEDS: LOSARTAN POTASSIUM 50 MG TAB PO SCH (21:07)
[2016-12-03] MEDS: AMITRIPTYLINE HCL 50 MG TAB PO SCH (21:08)
[2016-12-03] MEDS: LAMIVUDINE 10 MG/ML PO SCH (21:10)
[2016-12-04] MEDS ORDERED: ceFAZolin 2 GM/DEXTROSE 100 ML IV ONE (06:30)
[2016-12-04] MEDS ORDERED: CEFAZOLIN 2 GM/DEXTROSE/100 ML BAG IV ONE (07:46)
[2016-12-04] MEDS ORDERED: MIDAZOLAM 2 MG/2 ML VIAL ONE (08:14)
[2016-12-04] MEDS ORDERED: REMIFENTANIL HCL 1 MG VIAL ONE (08:14)
[2016-12-04] MEDS ORDERED: LIDOCAINE 2% 100 MG/5 ML SYR IVP ONE (08:15)
[2016-12-04] MEDS ORDERED: ONDANSETRON 4 MG/2 ML VIAL ONE (08:15)
[2016-12-04] MEDS ORDERED: fentaNYL 100 MCG/2 ML INJ ONE ×2 (08:15→10:01)
[2016-12-04] MEDS ORDERED: PROPOFOL/EMULSION 500 MG/50 ML BOTTLE IV ONE (08:15)
[2016-12-04] MEDS ORDERED: DEXAMETHASONE 4 MG/ML VIAL ONE (08:15)
[2016-12-04] MEDS ORDERED: BUPIVACAINE/EPI 0.5% 30 ML SDV ONE (08:20)
[2016-12-04] MEDS ORDERED: LIDOCAINE HCL 160 MG/4 ML LTA KIT TP ONE ×2 (08:22→08:23)
[2016-12-04] MEDS ORDERED: LIDOCAINE 2% JELLY 5 ML TUBE ONE (08:22)
[2016-12-04] MEDS ORDERED: PHENYLEPHRINE HCL 100 MCG/ML SYR ONE ×2 (08:51→09:20)
[2016-12-04] MEDS ORDERED: DOXYCYCLINE IV ONE (09:30)
[2016-12-04] MEDS ORDERED: D5W IV ONE (09:30)
--- NOTE | 2016-12-04 10:09 | SOAPPROG ---
SOAP Progress Note Assessment/Plan: Assessment: 61 male with crf and hiv+ with recurrent rt pleural effusions needs pleurdesis riks and options fully discussed Plan: rt vats pleurodesis 12/04/16 10:08 Objective: Vital Signs Temp Pulse Resp BP Pulse Ox 36.6 C 73 19 131/49 H 92 12/04/16 03:38 12/04/16 03:38 12/04/16 03:38 12/04/16 03:38 12/04/16 03:38 Microbiology 11/29/16 19:50 Urine Culture - Final Urine,Clean Catch Proteus Vulgaris#2 Proteus Vulgaris 11/30/16 10:00 Gram Stain - Final Thoracic Fluid - Aspirate Body Fluid Culture - Final Laboratory Results 12/03/16 05:45 12/03/16 05:45 12/03/16 12/04/16 12/05/16 05:59 05:59 05:59 Intake Total 720 1927 Output Total 2400 475 200 Balance -1680 1452 -200 PT 14.9 SEC (12.0-15.0) 12/01/16 11:13 INR 1.17 (0.83-1.16) H 12/01/16 11:13 ICD10 Worksheet Patient Problems: Problems Problem Status Diagnosed Dyspnea Acute End stage renal disease on dialysis Acute Volume overload Acute Afib Acute CHF (congestive heart failure) Acute Neuropathy Acute Pleural effusion on right Acute Pneumonia Acute
--- NOTE | 2016-12-04 10:12 | POSTOPPROG ---
Post Op Note Date of Operation: 12/04/16 Surgeon: Emmanuel Sloan [employer] Dispatcher: adán Anesthesiologist: cy Anesthesia: GET(General Endotracheal) Pre-op Diagnosis: recurrent rt pleural effusions with respiratory mpromise Post-op Diagnosis: same Indication: sob Procedure: rt vats pleurodesis Findings: serous effusion with minimal intrathoracic adhesions Inf/Abcess present in the surg proc area at time of surgery?: No Depth: Organ Space EBL: Minimal Complications: 0 Drains: Constavac Specimen(s): 0
[2016-12-04] MEDS ORDERED: LABETALOL HCL 5 MG/ML 20 ML MDV ONE (10:22)
[2016-12-04] MEDS ORDERED: HYDROmorphONE/DILAUDID 1 MG/ML SYR IVP PRN (11:01)
--- NOTE | 2016-12-04 11:42 | DX ---
Portable Chest December 04, 2016 at 11:15 hours History: Shortness of breath, recurrent pleural effusion, chest tube placement. Comparison: CT chest December 02, 2016 and portable chest November 30, 2016. Findings: There has been interval placement of 2 chest tubes, which are in good position. There is no visible pneumothorax. A right pleural effusion is no longer visible. Streaky bibasilar opacities sug gest atelectasis with comparison to the previous study limited by decreased effusion. Streaky left ba silar opacities are increased. Cardiomegaly is stable. The bones are stable. Splenic calcification is again noted. Impression: 1. 2 right chest tubes with no visible complication, with no significant residual right pleural effus ion. 2. Indistinct basilar opacities suggesting atelectasis.
[2016-12-04] MEDS: AMPICILLIN/SULBACTAM 3 GM in NS 100 ML IV SCH (12:36)
[2016-12-04] MEDS: CARVEDILOL 6.25 MG TAB PO SCH ×2 (12:37→20:14)
[2016-12-04] MEDS: AZITHROMYCIN 250 MG TAB PO SCH (12:38)
[2016-12-04] MEDS: PANTOPRAZOLE SODIUM 40 MG TAB PO SCH ×2 (12:39→20:15)
[2016-12-04] MEDS: GABAPENTIN 300 MG CAP PO SCH ×2 (12:39→20:15)
[2016-12-04] MEDS: SENNOSIDES/DOCUSATE SODIUM TAB PO SCH ×2 (12:39→20:15)
[2016-12-04] MEDS: FUROSEMIDE 80 MG TAB PO SCH ×2 (12:40→18:39)
[2016-12-04] MEDS: amLODIPine BESYLATE 5 MG TAB PO SCH ×2 (12:40→20:15)
[2016-12-04] MEDS: ABACAVIR SULFATE 300 MG PO SCH ×2 (12:41→20:16)
[2016-12-04] MEDS: RALTEGRAVIR 400 MG TAB PO SCH ×2 (12:41→20:16)
[2016-12-04] MEDS: GENTAMICIN 0.1% CREAM TP SCH (12:49)
[2016-12-04] MEDS: SEVELAMER HCL 800 MG TAB PO SCH ×3 (12:53→18:38)
[2016-12-04] MEDS: oxyCODONE IR 5 MG TAB PO PRN ×2 (12:57→18:38)
--- NOTE | 2016-12-04 16:44 | HOSPPROG ---
Hospitalist Progress Note Assessment/Plan: * Right pleural effusion * discussed with primary dental ceramist helper Dr. Carranza. He believes this is from peritoneal dialysis. Apparently glucose does not need to be elevated. He feels that VATS should be done during his hospitalization. * status post VATS * probable right lower lobe pneumonia * possible aspiration * will start IV Unasyn and azithromycin to cover both aspiration and community- acquired pneumonia * rule out aspiration * will get speech evaluation * probably needs a video swallow * end-stage renal disease * getting peritoneal dialysis * HIV * pyuria and bacteriuria * no evidence of infection Subjective: groggy from surgery Objective: Vital Signs Temp Pulse Resp BP Pulse Ox 36.7 C 70 14 150/68 H 97 12/04/16 15:39 12/04/16 15:39 12/04/16 15:39 12/04/16 15:39 12/04/16 15:39 Microbiology 11/29/16 19:50 Urine Culture - Final Urine,Clean Catch Proteus Vulgaris#2 Proteus Vulgaris Laboratory Results 12/03/16 05:45 12/03/16 05:45 12/03/16 12/04/16 12/05/16 05:59 05:59 05:59 Intake Total 720 1927 600 Output Total 2400 475 730 Balance -1680 1452 -130 PT 14.9 SEC (12.0-15.0) 12/01/16 11:13 INR 1.17 (0.83-1.16) H 12/01/16 11:13 - Physical Exam Constitutional: no apparent distress, appears nourished, not in pain Cardiovascular: regular rate and rhythym Respiratory: no respiratory distress ( stop) Psychiatric: other ( somewhat sedated) ICD10 Worksheet Patient Problems: Problems Problem Status Diagnosed Dyspnea Acute End stage renal disease on dialysis Acute Volume overload Acute Afib Acute CHF (congestive heart failure) Acute Neuropathy Acute Pleural effusion on right Acute Pneumonia Acute
[2016-12-04] MEDS: LOSARTAN POTASSIUM 50 MG TAB PO SCH (20:15)
[2016-12-04] MEDS: AMITRIPTYLINE HCL 50 MG TAB PO SCH (20:15)
[2016-12-04] MEDS: LAMIVUDINE 10 MG/ML PO SCH (20:16)
--- NOTE | 2016-12-04 21:33 | SOAPPROG ---
SOAP Progress Note Assessment/Plan: Assessment: ESRD on APD pleuroperitoneal fistula vol overload better possible PNA Plan: PD holiday tonight VATS earlier today seems to have gone well dialysis resumes tomorrow night encouraged up and around 12/03/16 14:47 12/04/16 21:30 Subjective: spirits good pain post op is manageable no cp sob nausea or vomiting getting up and around encouraged nutrition and lung expansion Objective: Vital Signs Temp Pulse Resp BP Pulse Ox 36.6 C 83 20 148/70 H 92 12/04/16 20:00 12/04/16 20:00 12/04/16 20:00 12/04/16 20:00 12/04/16 20:00 Laboratory Results 12/03/16 05:45 12/03/16 05:45 12/03/16 12/04/16 12/05/16 05:59 05:59 05:59 Intake Total 720 1927 2009 Output Total 2400 475 1750 Balance -1680 1452 260 PT 14.9 SEC (12.0-15.0) 12/01/16 11:13 INR 1.17 (0.83-1.16) H 12/01/16 11:13 Physical Exam - Physical Exam General Appearance: cachetic Respiratory: No rhonchi, No wheezing Cardiac/Chest: regular rate, rhythm, edema, No gallop, No friction rub Abdomen: normal bowel sounds, non-tender, soft Extremities: pedal edema Neuro/Psych: alert, normal mood/affect, oriented x 3 ICD10 Worksheet Patient Problems: Problems Problem Status Diagnosed Dyspnea Acute End stage renal disease on dialysis Acute Volume overload Acute Afib Acute CHF (congestive heart failure) Acute Neuropathy Acute Pleural effusion on right Acute Pneumonia Acute
[2016-12-05 04:13] LABS: % IMMATURE GRANULYOCYTES 0.4 % (0.0-1.1); ABSOLUTE IMMATURE GRANULOCYTES 0.04 10^3/uL (0.00-0.10); ADD DIFF? NO; ADD MORPH? NO; ADD SCAN? NO; ATYPICAL LYMPHOCYTE FLAG 0 (0-99); FRAGMENT RBC FLAG 0 (0-99); HEMATOCRIT 30.5 % (40.0-51.0); HEMOGLOBIN 9.8 g/dL (13.7-17.5); LEFT SHIFT FLG 0 (0-99); LIPEMIA HEMOLYSIS FLAG 80 (0-99); MEAN CELL HEMOGLOBIN 34.5 pg (27.9-34.1); MEAN CELL HEMOGLOBIN CONCENTR. 32.1 g/dL (32.4-36.7); MEAN CELL VOLUME 107.4 fL (81.5-99.8); MEAN PLATELET VOLUME 10.5 fL (8.7-11.7); PLATELET CLUMPS FLAG 0 (0-99); PLATELET COUNT 185 10^3/uL (150-400); RED BLOOD CELL COUNT 2.84 10^6/uL (4.40-6.38); RED CELL DISTRIBUTION WIDTH 13.3 % (11.5-15.2)
[2016-12-05 04:37] LABS: ANION GAP 15 mEq/L (8-16); CALCIUM 9.5 mg/dL (8.5-10.4); CARBON DIOXIDE 27 mEq/l (22-31); CHLORIDE 98 mEq/L (97-110); GLOMERULAR FILTRATION RATE 6; GLUCOSE 95 mg/dL (70-100); POTASSIUM 5.3 mEq/L (3.5-5.2); SODIUM 140 mEq/L (134-144)
[2016-12-05 04:41] LABS: CREATININE 8.9 mg/dL (0.7-1.3)
--- NOTE | 2016-12-05 08:39 | DX ---
Portable AP chest. December 05, 2016at 6:12 AM History: Followup lung disease. ICU patient COMPARISON STUDY: December 04, 2016. Findings: 2 right chest tubes are again noted, without pneumothorax. Increasing atelectasis of the ri ght lower lobe is present. Patchy atelectasis/infiltrate, left lower lobe has improved. Heart size is stable. Impression: 2 right thoracostomy tubes, without pneumothorax, with increasing right lower lobe atelec tasis.
[2016-12-05] MEDS ORDERED: HEPARIN 10,000 UNIT/10 ML MDV IVP ONE (09:12)
[2016-12-05] MEDS ORDERED: HEPARIN 10,000 UNIT/10 ML MDV IVP PRN (09:12)
--- NOTE | 2016-12-05 09:33 | SOAPPROG ---
SOAP Progress Note Assessment/Plan: Assessment: 61 male with crf and hiv+ with recurrent rt pleural effusions needs pleurdesis riks and options fully discussed Plan: rt vats pleurodesis 12/04/16 10:08 12/05/16 09:32 DOING WELL/ AFEBRILE/ COMFORTABLE/ DRAINAGE 100CC OVERNITE/ CXR WELL EXPANDED Objective: Vital Signs Temp Pulse Resp BP Pulse Ox 36.7 C 108 H 18 170/73 H 90 L 12/05/16 07:55 12/05/16 07:55 12/05/16 07:55 12/05/16 07:55 12/05/16 07:55 Laboratory Results 12/05/16 03:45 12/05/16 03:45 12/04/16 12/05/16 12/06/16 05:59 05:59 05:59 Intake Total 1927 2210 Output Total 475 2400 Balance 1452 -190 PT 14.9 SEC (12.0-15.0) 12/01/16 11:13 INR 1.17 (0.83-1.16) H 12/01/16 11:13 ICD10 Worksheet Patient Problems: Problems Problem Status Diagnosed Dyspnea Acute End stage renal disease on dialysis Acute Volume overload Acute Afib Acute CHF (congestive heart failure) Acute Neuropathy Acute Pleural effusion on right Acute Pneumonia Acute
[2016-12-05] MEDS: AMPICILLIN/SULBACTAM 3 GM in NS 100 ML IV SCH (09:35)
[2016-12-05] MEDS: SENNOSIDES/DOCUSATE SODIUM TAB PO SCH ×2 (09:44→21:17)
[2016-12-05] MEDS: amLODIPine BESYLATE 5 MG TAB PO SCH ×2 (09:44→21:18)
[2016-12-05] MEDS: GABAPENTIN 300 MG CAP PO SCH ×2 (09:44→21:18)
[2016-12-05] MEDS: PANTOPRAZOLE SODIUM 40 MG TAB PO SCH ×2 (09:44→21:20)
[2016-12-05] MEDS: AZITHROMYCIN 250 MG TAB PO SCH (09:44)
[2016-12-05] MEDS: SEVELAMER HCL 800 MG TAB PO SCH ×3 (09:44→18:03)
[2016-12-05] MEDS: CARVEDILOL 6.25 MG TAB PO SCH ×2 (09:44→21:20)
[2016-12-05] MEDS: FUROSEMIDE 80 MG TAB PO SCH ×2 (09:44→16:52)
[2016-12-05] MEDS: RALTEGRAVIR 400 MG TAB PO SCH ×2 (09:52→21:25)
[2016-12-05] MEDS: ABACAVIR SULFATE 300 MG PO SCH ×2 (09:53→21:24)
[2016-12-05] MEDS: GENTAMICIN 0.1% CREAM TP SCH (09:54)
[2016-12-05] MEDS: HEPARIN/DEXTROSE 500 ML IV SCH (12:34)
--- NOTE | 2016-12-05 14:22 | SOAPPROG ---
SOAP Progress Note Assessment/Plan: Assessment: ESRD on APD pleuroperitoneal fistula vol overload better possible PNA Plan: PD holiday tonight VATS yesterday seems to have gone well dialysis resumes tonight encouraged up and around 12/03/16 14:47 12/04/16 21:30 12/05/16 14:20 Subjective: feels better SOB improved [address] no cp sob nausea or vomiting spirits good Objective: Vital Signs Temp Pulse Resp BP Pulse Ox 36.7 C 78 21 H 152/70 H 91 L 12/05/16 12:40 12/05/16 12:40 12/05/16 12:40 12/05/16 12:40 12/05/16 12:40 Laboratory Results 12/05/16 03:45 12/05/16 03:45 12/04/16 12/05/16 12/06/16 05:59 05:59 05:59 Intake Total 1927 2210 540 Output Total 475 2400 Balance 1452 -190 540 PT 14.9 SEC (12.0-15.0) 12/01/16 11:13 INR 1.17 (0.83-1.16) H 12/01/16 11:13 Physical Exam - Physical Exam General Appearance: alert, thin Respiratory: No rhonchi, No wheezing Cardiac/Chest: regular rate, rhythm, edema, systolic murmur, No friction rub Abdomen: normal bowel sounds, non-tender, soft Extremities: swelling Neuro/Psych: alert, normal mood/affect, oriented x 3 ICD10 Worksheet Patient Problems: Problems Problem Status Diagnosed Dyspnea Acute End stage renal disease on dialysis Acute Volume overload Acute Afib Acute CHF (congestive heart failure) Acute Neuropathy Acute Pleural effusion on right Acute Pneumonia Acute
--- NOTE | 2016-12-05 16:14 | HOSPPROG ---
Hospitalist Progress Note Assessment/Plan: * Right pleural effusion * discussed with primary sewer pipe layer helper Dr. Carranza. He believes this is from peritoneal dialysis. Apparently glucose does not need to be elevated. He feels that VATS should be done during his hospitalization. * status post VATS * probable right lower lobe pneumonia * possible aspiration * will start IV Unasyn and azithromycin to cover both aspiration and community- acquired pneumonia * rule out aspiration * will get speech evaluation * probably needs a video swallow * end-stage renal disease * getting peritoneal dialysis * HIV * pyuria and bacteriuria * no evidence of infection Subjective: no new complaints. Pain is well controlled Objective: Vital Signs Temp Pulse Resp BP Pulse Ox 36.6 C 153 H 15 148/70 H 94 12/05/16 16:00 12/05/16 16:00 12/05/16 16:00 12/05/16 16:00 12/05/16 16:00 Laboratory Results 12/05/16 03:45 12/05/16 03:45 12/04/16 12/05/16 12/06/16 05:59 05:59 05:59 Intake Total 1927 2210 540 Output Total 475 2400 Balance 1452 -190 540 PT 14.9 SEC (12.0-15.0) 12/01/16 11:13 INR 1.17 (0.83-1.16) H 12/01/16 11:13 - Physical Exam Constitutional: no apparent distress, appears nourished, not in pain Eyes: anicteric sclera, EOMI Ears, Nose, Mouth, Throat: moist mucous membranes, hearing normal, ears appear normal Cardiovascular: regular rate and rhythym Respiratory: no respiratory distress, other ( chest tube in place) Skin: warm Neurologic: AAOx3 Psychiatric: interacting appropriately, not anxious, not encephalopathic, thought process linear ICD10 Worksheet Patient Problems: Problems Problem Status Diagnosed Dyspnea Acute End stage renal disease on dialysis Acute Volume overload Acute Afib Acute CHF (congestive heart failure) Acute Neuropathy Acute Pleural effusion on right Acute Pneumonia Acute
[2016-12-05] MEDS: AMITRIPTYLINE HCL 50 MG TAB PO SCH (21:17)
[2016-12-05] MEDS: LOSARTAN POTASSIUM 50 MG TAB PO SCH (21:19)
[2016-12-05] MEDS: LAMIVUDINE 10 MG/ML PO SCH (21:26)
--- NOTE | 2016-12-05 22:18 | GOP ---
[f rep st] OPERATIVE REPORT DATE OF OPERATION: 12/04/2016 SURGEON: Emmanuel Sloan MD AUTO COLLISION REPAIR INSTRUCTOR: Richard Crockett MD ANESTHESIOLOGIST: Jamie Fabian MD PREOPERATIVE DIAGNOSIS: Recurrent right pleural effusion with chronic renal failure on peritoneal di alysis. POSTOPERATIVE DIAGNOSIS: Recurrent right pleural effusion with chronic renal failure on peritoneal d ialysis. PROCEDURE PERFORMED: Video-assisted thorascopic surgery pleurodesis and drainage of pleural effusion s. FINDINGS: 1. The patient was found to have a fair volume of serous fluid. 2. There was only minimal residual adhesions in the chest from previous chest surgery. 3. There was no evidence of any diaphragmatic hernias that could be elucidated with the laparoscoped. DESCRIPTION OF PROCEDURE: The patient was taken to the operating room where he received satisfactory double-lumen general endotracheal tube anesthesia by Dr. Fabian. He was placed in the left lateral d ecubitus position, prepped and draped in usual sterile fashion. A short incision was made in the 7th intercostal space in the midaxillary line. A trocar was introduced. Some serous fluid was suctione d clear. The thoracoscope was introduced. The lung was well decompressed and again there were very minimal adhesions to the chest wall. Two other trocars were placed under direct vision. The lung wa s elevated up using gauze and the Bovie scraper pad. The parietal and pleural surfaces were irritate d and roughened up with the gauze tissue. A fine talcum powder spray was placed throughout the pleur al cavity. In addition, 200 mg of tetracycline was introduced into the chest and the patient was pos itioned in various positions to allow the fluid to run over the various areas of the chest wall. Two #28 chest tubes were brought out through separate stab incisions and secured to the skin with silk s utures. The trocar sites were used for this. The other trocar site was closed with 4-0 Vicryl subcu ticular sutures. All layers were infiltrated with 0.5% Marcaine and some Marcaine was placed in the pleural cavity as well. He tolerated the procedure well. The chest tubes were placed to a Pleur-melissa c drainage system. There were no complications. Blood loss negligible. He was taken to the recover y room in good condition. /[id number]/MODL
[2016-12-06 08:20] LABS: % IMMATURE GRANULYOCYTES 0.6 % (0.0-1.1); ABSOLUTE IMMATURE GRANULOCYTES 0.05 10^3/uL (0.00-0.10); ADD DIFF? NO; ADD MORPH? NO; ADD SCAN? NO; ATYPICAL LYMPHOCYTE FLAG 0 (0-99); FRAGMENT RBC FLAG 0 (0-99); HEMOGLOBIN 9.7 g/dL (13.7-17.5); LEFT SHIFT FLG 0 (0-99); LIPEMIA HEMOLYSIS FLAG 80 (0-99); MEAN CELL HEMOGLOBIN 34.8 pg (27.9-34.1); MEAN CELL HEMOGLOBIN CONCENTR. 32.3 g/dL (32.4-36.7); MEAN CELL VOLUME 107.5 fL (81.5-99.8); MEAN PLATELET VOLUME 10.8 fL (8.7-11.7); PLATELET CLUMPS FLAG 0 (0-99); PLATELET COUNT 187 10^3/uL (150-400); RED BLOOD CELL COUNT 2.79 10^6/uL (4.40-6.38); RED CELL DISTRIBUTION WIDTH 13.5 % (11.5-15.2)
[2016-12-06] MEDS: ABACAVIR SULFATE 300 MG PO SCH ×2 (08:23→20:59)
[2016-12-06] MEDS: RALTEGRAVIR 400 MG TAB PO SCH ×2 (08:24→20:59)
[2016-12-06] MEDS: SEVELAMER HCL 800 MG TAB PO SCH ×3 (08:25→18:04)
[2016-12-06] MEDS: AZITHROMYCIN 250 MG TAB PO SCH (08:25)
[2016-12-06] MEDS: CALCITRIOL 0.25 MCG CAP PO SCH (08:26)
[2016-12-06] MEDS: CARVEDILOL 6.25 MG TAB PO SCH ×2 (08:26→20:55)
[2016-12-06] MEDS: amLODIPine BESYLATE 5 MG TAB PO SCH ×2 (08:26→20:56)
[2016-12-06] MEDS: GABAPENTIN 300 MG CAP PO SCH ×2 (08:27→20:54)
[2016-12-06] MEDS: FUROSEMIDE 80 MG TAB PO SCH ×2 (08:27→14:53)
[2016-12-06] MEDS: PANTOPRAZOLE SODIUM 40 MG TAB PO SCH ×2 (08:27→20:56)
--- NOTE | 2016-12-06 08:43 | DX ---
Portable Chest, Single View 6:15 a.m. Indication: Right pleurodesis. Comparison: December 05, 2016. Findings: The two right chest tubes remain well positioned. Bibasilar consolidation has minimally imp roved. No discernible pneumothorax. Cardiomegaly and eggshell calcification in the spleen are unchang ed. No failure. Impression: 1. Right chest tubes remain in good position. 2. Minimally improved bibasilar consolidation.
[2016-12-06 08:47] LABS: ANION GAP 16 mEq/L (8-16); CALCIUM 9.2 mg/dL (8.5-10.4); CARBON DIOXIDE 25 mEq/l (22-31); CHLORIDE 100 mEq/L (97-110); GLOMERULAR FILTRATION RATE 6; GLUCOSE 62 mg/dL (70-100); POTASSIUM 4.6 mEq/L (3.5-5.2); SODIUM 141 mEq/L (134-144)
[2016-12-06 09:22] LABS: CREATININE 8.4 mg/dL (0.7-1.3)
[2016-12-06] MEDS: GENTAMICIN 0.1% CREAM TP SCH (09:25)
[2016-12-06] MEDS: AMPICILLIN/SULBACTAM 3 GM in NS 100 ML IV SCH (09:25)
[2016-12-06] MEDS: SENNOSIDES/DOCUSATE SODIUM TAB PO SCH ×2 (09:25→20:55)
[2016-12-06] MEDS: HEPARIN/DEXTROSE 500 ML IV SCH (10:04)
--- NOTE | 2016-12-06 11:29 | SOAPPROG ---
SOAP Progress Note Assessment/Plan: Assessment/Plan: 61 Y M CRF on PD, HIV+, recurrent R pleural effusions. s/p R VATS and pleurodesis. Doing well. No air leak. Low chest tube output. Wounds clean. Too early to remove tube given need for adequate pleurodesis. May place to water seal to walk but then return to suction. Also, discussed importance of getting OOB and using IS--needs adequate pain control to do these things. 12/06/16 11:29 Subjective: No SOB. Pain only when he moves he says. Objective: Vital Signs Temp Pulse Resp BP Pulse Ox 36.8 C 74 17 156/54 H 98 12/06/16 07:28 12/06/16 07:28 12/06/16 07:28 12/06/16 07:28 12/06/16 07:28 Laboratory Results 12/06/16 07:20 12/06/16 07:20 12/05/16 12/06/16 12/07/16 05:59 05:59 05:59 Intake Total 2210 1193 Output Total 2400 1135 30 Balance -190 58 -30 PT 14.9 SEC (12.0-15.0) 12/01/16 11:13 INR 1.17 (0.83-1.16) H 12/01/16 11:13 alert, nad no wob, no air leak, no w/r/r chest tube drainage serosanguinous wounds well dressed ICD10 Worksheet Patient Problems: Problems Problem Status Diagnosed Dyspnea Acute End stage renal disease on dialysis Acute Volume overload Acute Afib Acute CHF (congestive heart failure) Acute Neuropathy Acute Pleural effusion on right Acute Pneumonia Acute
[2016-12-06] MEDS: oxyCODONE IR 5 MG TAB PO PRN (13:17)
[2016-12-06] MEDS: POLYETHYLENE GLYCOL 3350 17 GM PKT PO PRN (13:18)
--- NOTE | 2016-12-06 14:18 | DX ---
Video Esophagram with Speech Therapy Indication: Respiratory distress. Evaluate for aspiration.. Technique: The study was performed jointly with the speech pathologist, Demetria, with the patient kelly robert laterally in a [place] chair. The oral and pharyngeal phases of swallowing were observed with fluo roscopy while the patient ingested various barium consistencies. Fluoroscopy Time: 1.7 minutes. Cumulative dose: 8 mGy Findings: No aspiration with any substance. Trace intermittent penetration occurs into the upper vest ibule with thin consistencies. Minimal residue within the valleculae spontaneously clears with second tasneem swallows. The epiglottis normally inverts. Impression: 1. No aspiration with any substance. 2. Mild pharyngeal dysmotility . 3. Please refer to the speech therapist's report and recommendations.
--- NOTE | 2016-12-06 15:44 | HOSPPROG ---
Hospitalist Progress Note Assessment/Plan: * Right pleural effusion * discussed with primary ticket sales agent Dr. Carranza. He believes this is from peritoneal dialysis. Apparently glucose does not need to be elevated. He feels that VATS should be done during his hospitalization. * status post VATS * chest tube in * probable right lower lobe pneumonia * possible aspiration * cont unasyn and azithro * rule out aspiration * will get speech evaluation * probably needs a video swallow *h/o afib with prev cva * switch back to home eliquis tonight * end-stage renal disease * getting peritoneal dialysis * HIV * pyuria and bacteriuria * no evidence of infection Subjective: no new complaints Objective: Vital Signs Temp Pulse Resp BP Pulse Ox 37.1 C 99 14 118/46 L 92 12/06/16 12:00 12/06/16 12:00 12/06/16 12:00 12/06/16 12:00 12/06/16 14:58 Laboratory Results 12/06/16 07:20 12/06/16 07:20 12/05/16 12/06/16 12/07/16 05:59 05:59 05:59 Intake Total 2210 1193 Output Total 2400 1135 30 Balance -190 58 -30 PT 14.9 SEC (12.0-15.0) 12/01/16 11:13 INR 1.17 (0.83-1.16) H 12/01/16 11:13 - Physical Exam Constitutional: no apparent distress, appears nourished, not in pain Eyes: anicteric sclera, EOMI Ears, Nose, Mouth, Throat: moist mucous membranes, hearing normal Cardiovascular: regular rate and rhythym Respiratory: no respiratory distress, no rales or rhonchi, reduced air movement (right base) Gastrointestinal: normoactive bowel sounds, soft, non-tender abdomen, no palpable masses Skin: warm Neurologic: AAOx3 Psychiatric: interacting appropriately, not anxious, not encephalopathic, thought process linear ICD10 Worksheet Patient Problems: Problems Problem Status Diagnosed Dyspnea Acute End stage renal disease on dialysis Acute Volume overload Acute Afib Acute CHF (congestive heart failure) Acute Neuropathy Acute Pleural effusion on right Acute Pneumonia Acute
--- NOTE | 2016-12-06 15:53 | SOAPPROG ---
SOAP Progress Note Assessment/Plan: Assessment: 1. esrd: continue current pd rx for now. Home regimen is 5 exchanges over 7hrs, 2000ml each. Volume status looks reasonable, will cont efforts to keep relatively dry due to effusion. 2. pleural effusion: s/p pleurodesis, still with CT. 3. anemia: procrit Plan: 12/06/16 15:50 Subjective: Feeling ok. Approx 2.3L uf on PD overnight. Denies any cramping. Objective: Vital Signs Temp Pulse Resp BP Pulse Ox 37.1 C 99 14 118/46 L 92 12/06/16 12:00 12/06/16 12:00 12/06/16 12:00 12/06/16 12:00 12/06/16 14:58 Laboratory Results 12/06/16 07:20 12/06/16 07:20 12/05/16 12/06/16 12/07/16 05:59 05:59 05:59 Intake Total 2210 1193 Output Total 2400 1135 30 Balance -190 58 -30 PT 14.9 SEC (12.0-15.0) 12/01/16 11:13 INR 1.17 (0.83-1.16) H 12/01/16 11:13 Physical Exam - Physical Exam General Appearance: no apparent distress Respiratory: decreased breath sounds (R base), other (+chest tube) Cardiac/Chest: regular rate, rhythm Abdomen: non-tender, soft Extremities: pedal edema (none) ICD10 Worksheet Patient Problems: Problems Problem Status Diagnosed Dyspnea Acute End stage renal disease on dialysis Acute Volume overload Acute Afib Acute CHF (congestive heart failure) Acute Neuropathy Acute Pleural effusion on right Acute Pneumonia Acute
[2016-12-06] MEDS ORDERED: EPOETIN ALFA 10,000 UNIT/ML VIAL SC ONE (15:58)
[2016-12-06] MEDS: AMITRIPTYLINE HCL 50 MG TAB PO SCH (20:54)
[2016-12-06] MEDS: APIXABAN 2.5 MG TAB PO SCH (20:55)
[2016-12-06] MEDS: LOSARTAN POTASSIUM 50 MG TAB PO SCH (20:56)
[2016-12-06] MEDS: LAMIVUDINE 10 MG/ML PO SCH (21:00)
[2016-12-06] MEDS: CINACALCET HCL 30 MG TAB PO SCH (21:08)
[2016-12-07 06:05] LABS: ANION GAP 17 mEq/L (8-16); CALCIUM 9.6 mg/dL (8.5-10.4); CARBON DIOXIDE 28 mEq/l (22-31); CHLORIDE 98 mEq/L (97-110); GLOMERULAR FILTRATION RATE 6; GLUCOSE 59 mg/dL (70-100); POTASSIUM 4.2 mEq/L (3.5-5.2); SODIUM 143 mEq/L (134-144)
[2016-12-07 06:08] LABS: CREATININE 8.7 mg/dL (0.7-1.3)
--- NOTE | 2016-12-07 07:56 | SOAPPROG ---
SOAP Progress Note Assessment/Plan: Assessment: 61 male with crf and hiv+ with recurrent rt pleural effusions needs pleurdesis riks and options fully discussed Plan: rt vats pleurodesis 12/04/16 10:08 12/05/16 09:32 DOING WELL/ AFEBRILE/ COMFORTABLE/ DRAINAGE 100CC OVERNITE/ CXR WELL EXPANDED 12/07/16 07:53 DRAINAGE DECREASED/ CXR STABLE/ COMFORTABLE/ HOME WHEN DRAINAGE NEGLIGIBLE Objective: Vital Signs Temp Pulse Resp BP Pulse Ox 36.7 C 76 14 144/54 H 97 12/07/16 07:36 12/07/16 07:36 12/07/16 07:36 12/07/16 07:36 12/07/16 07:36 Laboratory Results 12/06/16 07:20 12/07/16 04:48 12/06/16 12/07/16 12/08/16 05:59 05:59 05:59 Intake Total 1193 1300 Output Total 1135 2625 Balance 58 -1325 PT 14.9 SEC (12.0-15.0) 12/01/16 11:13 INR 1.17 (0.83-1.16) H 12/01/16 11:13 ICD10 Worksheet Patient Problems: Problems Problem Status Diagnosed Dyspnea Acute End stage renal disease on dialysis Acute Volume overload Acute Afib Acute CHF (congestive heart failure) Acute Neuropathy Acute Pleural effusion on right Acute Pneumonia Acute
[2016-12-07] MEDS: AMPICILLIN/SULBACTAM 3 GM in NS 100 ML IV SCH (08:24)
[2016-12-07] MEDS: SENNOSIDES/DOCUSATE SODIUM TAB PO SCH ×2 (08:29→20:52)
[2016-12-07] MEDS: POLYETHYLENE GLYCOL 3350 17 GM PKT PO PRN (08:29)
[2016-12-07] MEDS: GABAPENTIN 300 MG CAP PO SCH ×2 (08:29→20:52)
[2016-12-07] MEDS: PANTOPRAZOLE SODIUM 40 MG TAB PO SCH ×2 (08:29→20:52)
[2016-12-07] MEDS: AZITHROMYCIN 250 MG TAB PO SCH (08:29)
[2016-12-07] MEDS: FUROSEMIDE 80 MG TAB PO SCH ×2 (08:29→15:02)
[2016-12-07] MEDS: amLODIPine BESYLATE 5 MG TAB PO SCH (08:29)
[2016-12-07] MEDS: APIXABAN 2.5 MG TAB PO SCH ×2 (08:30→20:52)
[2016-12-07] MEDS: CARVEDILOL 6.25 MG TAB PO SCH ×2 (08:30→20:50)
[2016-12-07] MEDS: SEVELAMER HCL 800 MG TAB PO SCH ×3 (08:30→18:19)
[2016-12-07] MEDS: ABACAVIR SULFATE 300 MG PO SCH ×2 (08:30→20:54)
[2016-12-07] MEDS: GENTAMICIN 0.1% CREAM TP SCH (08:31)
[2016-12-07] MEDS: RALTEGRAVIR 400 MG TAB PO SCH ×2 (08:35→20:56)
--- NOTE | 2016-12-07 09:29 | DX ---
Portable Chest at 612 hours History: Right pleurodesis. Comparison: Portable chest December 06, 2016. Findings: 2 right chest tubes are in stable position. An equivocal tiny right apical pneumothorax is unchanged. Lung volumes are low with no significant change in patchy bibasilar consolidation. Mild ca rdiomegaly is stable. The bones are stable. Impression: 1. Stable equivocal tiny right apical pneumothorax with 2 right chest tubes in good position. 2. Stable bibasilar consolidation. Findings discussed with Polly the patient's nurse today at 927 hours.
--- NOTE | 2016-12-07 10:09 | SOAPPROG ---
SOAP Progress Note Assessment/Plan: Assessment: My complicated PD patient with Hx malignant HTN, HIV, GBS. 1. Recurrent pleuroperitoneal fistula s/p VATS, doing ok with pain control, CT in place. 2. PD His membrane has been showing some UF failure. Last pm, used all 4.25%. Will do this again tonight, but will hold pm dose of amlodipine 3. Neuropathy pain is stable 4. To get suprapubic catheter at some point. Plan: 12/07/16 10:02 12/07/16 10:09 Subjective: Doing ok. Ms good. No pain when not moving Objective: Vital Signs Temp Pulse Resp BP Pulse Ox 36.7 C 76 14 144/54 H 97 12/07/16 07:36 12/07/16 07:36 12/07/16 07:36 12/07/16 07:36 12/07/16 07:36 Laboratory Results 12/06/16 07:20 12/07/16 04:48 12/06/16 12/07/16 12/08/16 05:59 05:59 05:59 Intake Total 1193 1300 100 Output Total 1135 2625 Balance 58 -1325 100 PT 14.9 SEC (12.0-15.0) 12/01/16 11:13 INR 1.17 (0.83-1.16) H 12/01/16 11:13 Physical Exam - Physical Exam General Appearance: no apparent distress Respiratory: other (Clear with bronchial BS in bases) Cardiac/Chest: regular rate, rhythm Abdomen: non-tender, soft, other (Cath exit site ok) Extremities: normal inspection Neuro/Psych: normal mood/affect, oriented x 3 ICD10 Worksheet Patient Problems: Problems Problem Status Diagnosed Dyspnea Acute End stage renal disease on dialysis Acute Volume overload Acute Afib Acute CHF (congestive heart failure) Acute Neuropathy Acute Pleural effusion on right Acute Pneumonia Acute
--- NOTE | 2016-12-07 15:42 | HOSPPROG ---
Hospitalist Progress Note Assessment/Plan: # Right pleural effusion- Suspected from peritoneal dialysis s/p VATS - CT in place CXR ( personally reviewed and interpreted) persistent small pneumothorax unchanged oxygen saturations 97% on 4 L - cont chest tube - surgery managing # right lower lobe pneumonia- suspected aspiration - cont unasyn - will dc azithromycin # rule out aspiration * will get speech evaluation * probably needs a video swallow # h/o afib with prev cva -switch back to home eliquis tonight (will discuss with renal tomorrow) # end-stage renal disease * getting peritoneal dialysis # HIV # pyuria and bacteriuria # no evidence of infection # diet - tolerating PO # proph - on eliquis # dispo - > [address] requiring acute pulmonary management I have discussed the case with the RN - encouraging ambulation and PO intake Subjective: has appetite Objective: Vital Signs Temp Pulse Resp BP Pulse Ox 36.9 C 73 16 122/63 H 97 12/07/16 12:00 12/07/16 12:00 12/07/16 12:00 12/07/16 12:00 12/07/16 12:00 Laboratory Results 12/06/16 07:20 12/07/16 04:48 12/06/16 12/07/16 12/08/16 05:59 05:59 05:59 Intake Total 1193 1300 420 Output Total 1135 2625 Balance 58 -1325 420 PT 14.9 SEC (12.0-15.0) 12/01/16 11:13 INR 1.17 (0.83-1.16) H 12/01/16 11:13 - Physical Exam Constitutional: appears nourished, chronically ill appearing Eyes: anicteric sclera Ears, Nose, Mouth, Throat: moist mucous membranes Cardiovascular: regular rate and rhythym Respiratory: reduced air movement, No expiratory wheeze Gastrointestinal: normoactive bowel sounds Genitourinary: no bladder fullness Skin: warm, normal color Musculoskeletal: No asymmetric calves Neurologic: AAOx3 Psychiatric: interacting appropriately, not anxious Lymph, Heme, Immunologic: no cervical LAD ICD10 Worksheet Patient Problems: Problems Problem Status Diagnosed Dyspnea Acute End stage renal disease on dialysis Acute Volume overload Acute Afib Acute CHF (congestive heart failure) Acute Neuropathy Acute Pleural effusion on right Acute Pneumonia Acute
[2016-12-07] MEDS: AMITRIPTYLINE HCL 50 MG TAB PO SCH (20:50)
[2016-12-07] MEDS: LOSARTAN POTASSIUM 50 MG TAB PO SCH (20:51)
[2016-12-07] MEDS: LAMIVUDINE 10 MG/ML PO SCH (20:55)
[2016-12-08 05:16] LABS: % IMMATURE GRANULYOCYTES 0.9 % (0.0-1.1); ABSOLUTE IMMATURE GRANULOCYTES 0.08 10^3/uL (0.00-0.10); ADD DIFF? NO; ADD MORPH? NO; ADD SCAN? NO; ATYPICAL LYMPHOCYTE FLAG 10 (0-99); FRAGMENT RBC FLAG 0 (0-99); HEMATOCRIT 28.8 % (40.0-51.0); LEFT SHIFT FLG 0 (0-99); LIPEMIA HEMOLYSIS FLAG 80 (0-99); MEAN CELL HEMOGLOBIN 33.3 pg (27.9-34.1); MEAN CELL HEMOGLOBIN CONCENTR. 31.3 g/dL (32.4-36.7); MEAN CELL VOLUME 106.7 fL (81.5-99.8); MEAN PLATELET VOLUME 10.6 fL (8.7-11.7); PLATELET CLUMPS FLAG 10 (0-99); PLATELET COUNT 195 10^3/uL (150-400); RED CELL DISTRIBUTION WIDTH 13.7 % (11.5-15.2)
--- NOTE | 2016-12-08 08:11 | SOAPPROG ---
SOAP Progress Note Assessment/Plan: Assessment: 61 male with crf and hiv+ with recurrent rt pleural effusions needs pleurdesis riks and options fully discussed Plan: rt vats pleurodesis 12/04/16 10:08 12/05/16 09:32 DOING WELL/ AFEBRILE/ COMFORTABLE/ DRAINAGE 100CC OVERNITE/ CXR WELL EXPANDED 12/07/16 07:53 DRAINAGE DECREASED/ CXR STABLE/ COMFORTABLE/ HOME WHEN DRAINAGE NEGLIGIBLE 12/08/16 08:11 MINIMAL DRAINAGE/ AFEBRILE/ CXR STABLE/ HOME SOON Objective: Vital Signs Temp Pulse Resp BP Pulse Ox 36.4 C 69 16 136/56 H 98 12/08/16 07:53 12/08/16 07:53 12/08/16 07:53 12/08/16 07:53 12/08/16 07:53 Laboratory Results 12/08/16 04:37 12/07/16 04:48 12/07/16 12/08/16 12/09/16 05:59 05:59 05:59 Intake Total 1300 830 Output Total 1517 210 2237 Balance -1325 345 -2237 PT 14.9 SEC (12.0-15.0) 12/01/16 11:13 INR 1.17 (0.83-1.16) H 12/01/16 11:13 ICD10 Worksheet Patient Problems: Problems Problem Status Diagnosed Dyspnea Acute End stage renal disease on dialysis Acute Volume overload Acute Afib Acute CHF (congestive heart failure) Acute Neuropathy Acute Pleural effusion on right Acute Pneumonia Acute
--- NOTE | 2016-12-08 08:44 | SOAPPROG ---
SOAP Progress Note Assessment/Plan: Assessment/Plan: 61 Y M CRF on PD, HIV+, recurrent R pleural effusions. s/p R VATS and pleurodesis. Chest tube drainage low and no air leak. D/c'ed chest tubes this am. CXR later today (ordered for noon). If chest xray ok, then ok to d/c to home from surgical standpoint. Plan for f/u Fri or eraly next week with new CXR. Patient to call our office to set up appt (see d/c instructions). S: No SOB. Some pain when moving. O: alert, nad good fremitus, no air leak, min drainage, serosanguinous, no wob. wounds clean, no erythema. 12/08/16 08:42 Objective: Vital Signs Temp Pulse Resp BP Pulse Ox 36.4 C 69 16 136/56 H 98 12/08/16 07:53 12/08/16 07:53 12/08/16 07:53 12/08/16 07:53 12/08/16 07:53 Laboratory Results 12/08/16 04:37 12/07/16 04:48 12/07/16 12/08/16 12/09/16 05:59 05:59 05:59 Intake Total 1300 830 Output Total 8264 588 2237 Balance -1325 345 -2237 PT 14.9 SEC (12.0-15.0) 12/01/16 11:13 INR 1.17 (0.83-1.16) H 12/01/16 11:13 ICD10 Worksheet Patient Problems: Problems Problem Status Diagnosed Dyspnea Acute End stage renal disease on dialysis Acute Volume overload Acute Afib Acute CHF (congestive heart failure) Acute Neuropathy Acute Pleural effusion on right Acute Pneumonia Acute
[2016-12-08] MEDS: SEVELAMER HCL 800 MG TAB PO SCH ×3 (09:51→18:04)
[2016-12-08] MEDS: FUROSEMIDE 80 MG TAB PO SCH ×2 (09:51→15:49)
[2016-12-08] MEDS: APIXABAN 2.5 MG TAB PO SCH ×2 (09:52→20:46)
[2016-12-08] MEDS: PANTOPRAZOLE SODIUM 40 MG TAB PO SCH ×2 (09:52→20:46)
[2016-12-08] MEDS: CALCITRIOL 0.25 MCG CAP PO SCH (09:52)
[2016-12-08] MEDS: GABAPENTIN 300 MG CAP PO SCH ×2 (09:53→20:46)
[2016-12-08] MEDS: ABACAVIR SULFATE 300 MG PO SCH ×2 (09:53→20:46)
[2016-12-08] MEDS: AMPICILLIN/SULBACTAM 3 GM in NS 100 ML IV SCH (09:53)
[2016-12-08] MEDS: SENNOSIDES/DOCUSATE SODIUM TAB PO SCH ×2 (09:53→21:41)
[2016-12-08] MEDS: CARVEDILOL 6.25 MG TAB PO SCH ×2 (09:53→20:46)
[2016-12-08] MEDS: RALTEGRAVIR 400 MG TAB PO SCH ×2 (09:54→20:44)
[2016-12-08] MEDS: amLODIPine BESYLATE 5 MG TAB PO SCH (09:56)
[2016-12-08] MEDS: GENTAMICIN 0.1% CREAM TP SCH (09:57)
--- NOTE | 2016-12-08 10:17 | SOAPPROG ---
SOAP Progress Note Assessment/Plan: Assessment: 1. ESRD. Continue APD. BP down some today. Will use one bag of 2.5%, on of 4.25 % solutions tonight. Is at outpatient DW. 2. Pleural effusion. S/p repeat VATS. Likely due to peritoneal leak. Chest tubes out this am. Will try to keep at DW on dialysis. Likely having some UF failure. Close f/u with PD nurse at discharge. 3. Anemia. Hgb stable at 9. S/p procrit 12/06. 4. Dispo. Out soon. Plan: 12/08/16 10:20 Subjective: Chest tubes removed this am. 2.5 L removed on peritoneal dialysis last night. Denies cramping. No new complaints. Objective: Vital Signs Temp Pulse Resp BP Pulse Ox 36.4 C 73 16 136/73 H 98 12/08/16 07:53 12/08/16 09:53 12/08/16 07:53 12/08/16 09:53 12/08/16 07:53 Laboratory Results 12/08/16 04:37 12/07/16 04:48 12/07/16 12/08/16 12/09/16 05:59 05:59 05:59 Intake Total 1300 830 500 Output Total 2625 485 2237 Balance -1325 345 -1737 PT 14.9 SEC (12.0-15.0) 12/01/16 11:13 INR 1.17 (0.83-1.16) H 12/01/16 11:13 Comfortable wm in chair RRR, II/ RHYS CTAB Abdom soft, nt No edema ICD10 Worksheet Patient Problems: Problems Problem Status Diagnosed Dyspnea Acute End stage renal disease on dialysis Acute Volume overload Acute Afib Acute CHF (congestive heart failure) Acute Neuropathy Acute Pleural effusion on right Acute Pneumonia Acute
--- NOTE | 2016-12-08 16:07 | HOSPPROG ---
Hospitalist Progress Note Assessment/Plan: # Right pleural effusion- Suspected from peritoneal dialysis s/p VATS - CT removed this am CXR (personally reviewed and interpreted) persistent small pneumothorax unchanged oxygen saturations 99% on 2 L - rechecking CXR s/p CT removal # right lower lobe pneumonia- suspected aspiration - cont unasyn - will dc azithromycin # h/o afib with prev cva -switch back to home eliquis tonight (will discuss with renal tomorrow) # end-stage renal disease - getting peritoneal dialysis #VIVIAN -H&H 08/11 # HIV # pyuria and bacteriuria # no evidence of infection # diet - tolerating PO # proph - on eliquis # dispo - > [address] requiring acute pulmonary management I have discussed the case with the RN - will have PT/OT eval for dc planning in am if remains stable after CT removal Subjective: feels good with CT out Objective: Vital Signs Temp Pulse Resp BP Pulse Ox 36.5 C 69 20 123/52 H 99 12/08/16 15:15 12/08/16 15:15 12/08/16 15:15 12/08/16 15:15 12/08/16 15:15 Laboratory Results 12/08/16 04:37 12/07/16 04:48 12/07/16 12/08/16 12/09/16 05:59 05:59 05:59 Intake Total 1300 830 500 Output Total 2625 485 2237 Balance -1325 345 -1737 PT 14.9 SEC (12.0-15.0) 12/01/16 11:13 INR 1.17 (0.83-1.16) H 12/01/16 11:13 - Physical Exam Constitutional: chronically ill appearing Eyes: anicteric sclera Ears, Nose, Mouth, Throat: moist mucous membranes Cardiovascular: regular rate and rhythym Respiratory: reduced air movement Gastrointestinal: normoactive bowel sounds, soft, non-tender abdomen Genitourinary: no bladder fullness Skin: warm, normal color Musculoskeletal: No asymmetric calves Neurologic: AAOx3 Psychiatric: interacting appropriately, not anxious Lymph, Heme, Immunologic: no cervical LAD ICD10 Worksheet Patient Problems: Problems Problem Status Diagnosed Dyspnea Acute End stage renal disease on dialysis Acute Volume overload Acute Afib Acute CHF (congestive heart failure) Acute Neuropathy Acute Pleural effusion on right Acute Pneumonia Acute
--- NOTE | 2016-12-08 17:19 | DX ---
Portable AP chest. December 08, 2016at 1227 History: Chest tube removal. Comparison examination: December 07, 2016. Findings: From prior examination, there has been removal of 2 right thoracostomy tubes, without pneum othorax. Improving atelectasis/infiltrates in both lung bases identified in the interval, especially on the right. Heart size is normal. Impression: 1. Right thoracostomy tube removal without complication. 2. Improving bilateral lower lobe atelectasis/infiltrate.
[2016-12-08] MEDS ORDERED: CEPACOL LOZENGE PO PRN (17:57)
[2016-12-08] MEDS: LOSARTAN POTASSIUM 50 MG TAB PO SCH (20:46)
[2016-12-08] MEDS: LAMIVUDINE 10 MG/ML PO SCH (20:46)
[2016-12-08] MEDS: AMITRIPTYLINE HCL 50 MG TAB PO SCH (20:46)
[2016-12-09 05:43] LABS: ALBUMIN 3.2 g/dL (3.5-5.0); ANION GAP 15 mEq/L (8-16); CALCIUM 10.1 mg/dL (8.5-10.4); CARBON DIOXIDE 27 mEq/l (22-31); CHLORIDE 99 mEq/L (97-110); GLOMERULAR FILTRATION RATE 6; GLUCOSE 94 mg/dL (70-100); POTASSIUM 4.9 mEq/L (3.5-5.2); SODIUM 141 mEq/L (134-144)
[2016-12-09 06:01] LABS: CREATININE 9.2 mg/dL (0.7-1.3)
[2016-12-09 08:19] VITALS: BP 132/58; PULSE 75; RESP 14; TEMP 98; O2SAT 99
[2016-12-09] MEDS: CARVEDILOL 6.25 MG TAB PO SCH (09:03)
[2016-12-09] MEDS: APIXABAN 2.5 MG TAB PO SCH (09:03)
[2016-12-09] MEDS: SEVELAMER HCL 800 MG TAB PO SCH (09:03)
[2016-12-09] MEDS: amLODIPine BESYLATE 5 MG TAB PO SCH (09:04)
[2016-12-09] MEDS: SENNOSIDES/DOCUSATE SODIUM TAB PO SCH (09:04)
[2016-12-09] MEDS: GABAPENTIN 300 MG CAP PO SCH (09:04)
[2016-12-09] MEDS: FUROSEMIDE 80 MG TAB PO SCH (09:04)
[2016-12-09] MEDS: PANTOPRAZOLE SODIUM 40 MG TAB PO SCH (09:04)
[2016-12-09] MEDS: RALTEGRAVIR 400 MG TAB PO SCH (09:05)
[2016-12-09] MEDS: ABACAVIR SULFATE 300 MG PO SCH (09:05)
[2016-12-09] MEDS: GENTAMICIN 0.1% CREAM TP SCH (09:07)
[2016-12-09] MEDS: AMPICILLIN/SULBACTAM 3 GM in NS 100 ML IV SCH (09:07)
--- NOTE | 2016-12-09 10:27 | SOAPPROG ---
SOAP Progress Note Assessment/Plan: Assessment: 61 male with crf and hiv+ with recurrent rt pleural effusions needs pleurdesis riks and options fully discussed Plan: rt vats pleurodesis 12/04/16 10:08 12/05/16 09:32 DOING WELL/ AFEBRILE/ COMFORTABLE/ DRAINAGE 100CC OVERNITE/ CXR WELL EXPANDED 12/07/16 07:53 DRAINAGE DECREASED/ CXR STABLE/ COMFORTABLE/ HOME WHEN DRAINAGE NEGLIGIBLE 12/08/16 08:11 MINIMAL DRAINAGE/ AFEBRILE/ CXR STABLE/ HOME SOON 12/09/16 10:27 BS EQUAL/ WOUNDS OK/ AFEBRILW/ CXR GOOD YESTERDAY/ HOME Objective: Vital Signs Temp Pulse Resp BP Pulse Ox 36.7 C 75 14 132/58 H 99 12/09/16 08:00 12/09/16 08:00 12/09/16 08:00 12/09/16 08:00 12/09/16 08:00 Laboratory Results 12/08/16 04:37 12/09/16 05:08 12/08/16 12/09/16 12/10/16 05:59 05:59 05:59 Intake Total 830 800 247 Output Total 485 2507 Balance 345 -1707 247 PT 14.9 SEC (12.0-15.0) 12/01/16 11:13 INR 1.17 (0.83-1.16) H 12/01/16 11:13 ICD10 Worksheet Patient Problems: Problems Problem Status Diagnosed Dyspnea Acute End stage renal disease on dialysis Acute Volume overload Acute Afib Acute CHF (congestive heart failure) Acute Neuropathy Acute Pleural effusion on right Acute Pneumonia Acute
--- NOTE | 2016-12-09 12:31 | SOAPPROG ---
SOAP Progress Note Assessment/Plan: Assessment: 1. ESRD. Continue APD. BP down some today. Will use one bag of 2.5%, on of 4.25 % solutions tonight. Is at outpatient DW. 2. Pleural effusion. S/p repeat VATS. Likely due to peritoneal leak. Chest tubes out. Call PD RN with new DW of 142 lbs. Close f/u with PD nurse at discharge. Can use all green solutions tonight. 3. Anemia. S/p procrit 12/06. 4. Dispo. Out today. Plan: 12/08/16 10:20 12/09/16 12:30 Subjective: No complaints. 2 L UF on dialysis over night. Had cramps. Objective: Vital Signs Temp Pulse Resp BP Pulse Ox 36.7 C 75 14 132/58 H 99 12/09/16 08:00 12/09/16 08:00 12/09/16 08:00 12/09/16 08:00 12/09/16 08:00 Laboratory Results 12/08/16 04:37 12/09/16 05:08 12/08/16 12/09/16 12/10/16 05:59 05:59 05:59 Intake Total 830 800 247 Output Total 485 2507 Balance 345 -1707 247 PT 14.9 SEC (12.0-15.0) 12/01/16 11:13 INR 1.17 (0.83-1.16) H 12/01/16 11:13 RRR, no m/g/r Coarse R basilar breath sounds Abdom soft, nt No edema ICD10 Worksheet Patient Problems: Problems Problem Status Diagnosed Afib Acute CHF (congestive heart failure) Acute Dyspnea Acute End stage renal disease on dialysis Acute Neuropathy Acute Pleural effusion on right Acute Pneumonia Acute Volume overload Acute
--- NOTE | 2016-12-09 18:37 | GDS ---
[f rep st] DISCHARGE SUMMARY DISCHARGE DIAGNOSES FOR THIS PATIENT: Include: 1. Endstage renal disease, on peritoneal dialysis. 2. Right pleural effusions, suspected secondary to peritoneal dialysis, status post video-assisted t horacoscopic surgery pleurodesis. 3. Right lower lobe pneumonia, completed antibiotics. 4. History of atrial fibrillation, on anticoagulation. 5. History of cerebrovascular accident. 6. Anemia of renal disease. 7. Human immunodeficiency virus. HISTORY OF PRESENT ILLNESS: This is a 61-year-old male with a history of endstage renal on peritonea l dialysis, who presented on 11/29/2016 with complaints of shortness of breath. For details of payton cho's initial presentation, please see the history and physical dated 11/29/2016. CONSULTATIVE SERVICES ON THIS PATIENT: Include: 1. Nephrology. 2. General Surgery. PROCEDURES ON THIS PATIENT: On 12/04/2016, patient underwent VATS pleurodesis. On 12/06/2016, payton cho underwent video esophagogram that showed no aspiration with any substance. HOSPITAL COURSE BY ISSUE: 1. Acute right pleural effusion, thought secondary to peritoneal dialysis: Patient underwent VATS p leurodesis and had successful outcome. Chest tube was removed the day prior to his disposition. On the day of disposition, patient's oxygen saturations remained 99% on 3 L with normal post chest tube removal chest x-ray. The patient will follow with Dr. Sloan in the outpatient setting. 2. Endstage renal disease, on peritoneal dialysis: Patient will continue on his normal dialysis lisha edule and follow with his outpatient instrument tester. 3. Atrial fibrillation: Patient was reinitiated on outpatient anticoagulation, remained rate contro lled in the 70s during his hospital stay. MEDICATIONS AT THE TIME OF DISPOSITION: Please reference medication reconciliation printed on 2016. FOLLOWUP APPOINTMENTS: Include: 1. With General Surgery. 2. Nephrology. PENDING STUDIES AT THE TIME OF THIS DICTATION: None. I spent greater than 30 minutes in the planning and coordination of this discharge. /[id number]/MODL
== END 2016-12-09 12:25 | disposition home or self-care (01) | DRG 907 ==
LOC: F2W 20:22
PROVIDERS: ADMIT Hospitalist; ATTEND Hospitalist
PROC: 3E1M39Z Irrigation of Peritoneal Cavity using Dialysate, Percutaneous Approach (ICD-10-PCS; 2016-12-02)
PROC: 0B5N4ZZ Destruction of Right Pleura, Percutaneous Endoscopic Approach (ICD-10-PCS; principal; 2016-12-04 08:00)
PROC: 0B9N30Z Drainage of Right Pleura with Drainage Device, Percutaneous Approach (ICD-10-PCS; principal; 2016-12-04 08:00)
PROC: 0W993ZZ Drainage of Right Pleural Cavity, Percutaneous Approach (ICD-10-PCS; 2016-12-08)
DX: T81.83XA Persistent postprocedural fistula, initial encounter (principal); J90 Pleural effusion, not elsewhere classified; N18.6 End stage renal disease; J18.9 Pneumonia, unspecified organism; Z21 Asymptomatic human immunodeficiency virus [HIV] infection status; I13.2 Hypertensive heart and chronic kidney disease with heart failure and with stage 5 chronic kidney disease, or end stage renal disease; I50.20 Unspecified systolic (congestive) heart failure; I48.91 Unspecified atrial fibrillation; D63.1 Anemia in chronic kidney disease; Z99.2 Dependence on renal dialysis; I25.10 Atherosclerotic heart disease of native coronary artery without angina pectoris; Z79.01 Long term (current) use of anticoagulants
CPT/HCPCS: 82947-QW; 85520-90; 86359-90; 86360-90; 92526-GN; 92610-GN; 92611-GN; 97112-GP; 97116-GP; 97163-GP; 97530-GP; G8978-GP-CK; G8979-GP-CI; G8996-GN-CI; G8997-GN-CI; G8998-GN-CI; J0295; J0360; J0690; J0885; J1100; J1170; J1644; J2001; J2250; J2370; J2405; J2704; J3010; J3490

== ENCOUNTER → 2016-12-15 | Outpatient (CLI) | payer OTHER ==
--- NOTE | 2016-12-15 13:16 | DX ---
Chest, Two Views - December 15, 2016 at 1112 hours History: J19, right pleural effusion. Comparison: December 08, 2016. Findings: Cardiac silhouette is within normal range. No pneumothorax. Pleuroparenchymal opacity in th e right lower lobe and right middle lobe appears slightly improved with residual small pleural effusi on and underlying atelectasis or pneumonitis. Splenic benign peripherally calcified 3-cm cyst again n oted. Left lung is clear. No pulmonary edema. Impression: 1. No pneumothorax. 2. Slight improvement in pleuroparenchymal opacity in the right lower lobe probably representing mini mal pleural effusion and underlying atelectasis/pneumonitis.
== END ==
LOC: FIMAGING 11:13
PROVIDERS: ATTEND Surgery
DX: Z03.89 Encounter for observation for other suspected diseases and conditions ruled out (principal)

== ENCOUNTER 2017-01-25 15:14 | Inpatient (IN) | payer OTHER ==
[2017-01-25] MEDS ORDERED: ONDANSETRON DISINTEGRATING 4 MG TAB PO PRN (18:45)
[2017-01-25] MEDS ORDERED: ONDANSETRON 4 MG/2 ML VIAL IVP PRN (18:45)
[2017-01-25] MEDS ORDERED: ACETAMINOPHEN 325 MG TAB PO PRN (18:45)
--- NOTE | 2017-01-25 18:52 | PDGENHP ---
History and Physical - Chief Complaint Acute shortness of breath - History of Present Illness PCP: Dr. Velasquez Primary infectious Disease: Dr. Matos Primary cpa tax: Dr. Carranza Primary general surgeon: Dr. Sloan HPI: 61-year-old male presents with acute shortness of breath characterized as difficulty taking deep breath, onset of symptoms on the day prior, duration persistent thereafter. Patient reports that he has had associated right upper extremity edema, located on the dorsal surface, not associated with any chest pain or trauma. He reports that he has otherwise been adherent to all of his home medications, and his shortness of breath has been somewhat alleviated by increasing his supplemental oxygen from 3 L to 4 L nasal cannula. He also reports that he sleeps on his left side for mild relief. His symptoms are exacerbated by ambulation. At the Nephrology Clinic, he was placed on 5 L nasal cannula and his SpO2 remained in the 80% range. Was directly admitted from the clinic. History Information - Allergies/Home Medication List Allergies/Adverse Reactions: No Known Allergies Allergy (Unverified 11/29/16 16:28) Home Medications: Abacavir Sulfate [Abacavir] 300 mg PO BID 11/29/16 [Last Taken 11/29/16 09:00] Amitriptyline HCl [Elavil 50 mg (*)] 50 mg PO HS 11/29/16 [Last Taken 11/28/16 20:00] Apixaban [Eliquis] 2.5 mg PO BID 11/29/16 [Last Taken 11/29/16 09:00] Calcitriol [Calcitriol (*)] 0.25 mcg PO MWF 11/29/16 [Last Taken 11/26/16] Carvedilol [Coreg] 12.5 mg PO BID 11/29/16 [Last Taken 11/29/16 09:00] Cinacalcet HCl [Sensipar (*)] 30 mg PO MOTH 11/29/16 [Last Taken 11/25/16] Darbepoetin Umberto in Polysorbat [Aranesp] 0 mcg IJ Q15D PRN 11/29/16 [Last Taken 10/28/16] Furosemide [Lasix 80 MG (*)] 80 mg PO BID 11/29/16 [Last Taken 11/29/16 09:00] Gabapentin [Neurontin 300 MG (*)] 300 mg PO BID 11/29/16 [Last Taken 11/29/16 09 :00] Losartan Potassium [Cozaar] 100 mg PO HS 11/29/16 [Last Taken 11/28/16 20:00] Pantoprazole Sodium [Protonix 40mg (*)] 40 mg PO BID 11/29/16 [Last Taken 09:00] Raltegravir [Isentress] 400 mg PO BID 11/29/16 [Last Taken 11/29/16 09:00] Sevelamer Carbonate [Renvela] 800 mg PO TIDMEAL 11/29/16 [Last Taken 11/29/16 12 :00] amLODIPine BESYLATE [Norvasc 5 mg (*)] 5 mg PO BID 11/29/16 [Last Taken 09:00] lamIVUDine [Epivir] 25 mg PO HS 11/29/16 [Last Taken 11/28/16 20:00] oxyCODONE IR [Oxycodone Ir (*)] 5 mg PO DAILY PRN 11/29/16 [Last Taken 11/26/16] I have personally reviewed and updated: family history, medical history, social history, surgical history - Past Medical History ESRD (Currently on peritoneal dialysis) Additional medical history: Chronic hypoxic respiratory failure on 3 L nasal cannula. Hypertensive cardiomyopathy. History of CVA. Guillain-Medora. HIV. Pleural peritoneal fistula requiring pleurodesis. Recent hospitalization at [facility] for septic shock secondary to indwelling suprapubic catheter. Anemia of chronic kidney disease - Surgical History Additional surgical history: Right-sided pleurodesis. Suprapubic catheter removed. Peritoneal dialysis catheter. Right-sided dialysis catheter - Family History Additional family history: No recent sick family contacts - Social History Smoking Status: Never smoked Alcohol Use: None Drug Use: None Additional social history: Normally independent in ADLs Review of Systems ROS: 10pt was reviewed & negative except for what was stated in HPI & below Constitutional: Reports: weakness Cardiac: Reports: edema (Right upper extremity) Respiratory: Reports: shortness of breath Physical Exam Temp Pulse Resp BP Pulse Ox 36.8 C 87 20 177/77 H 92 01/25/17 18:29 01/25/17 18:29 01/25/17 18:29 01/25/17 18:29 01/25/17 18:29 O2 (L/minute) 4 Constitutional: no apparent distress, not in pain, chronically ill appearing, No uncomfortable Eyes: PERRL, anicteric sclera, EOMI Ears, Nose, Mouth, Throat: moist mucous membranes, hearing normal, ears appear normal, no oral mucosal ulcers Cardiovascular: systolic murmur (2/6 at apex), edema (Right dorsal surface of hand), No irregularly irregular, No tachycardia Respiratory: reduced air movement (Right side posteriorly), aegophony (Right side posteriorly), No expiratory wheeze, No inspiratory crackles, No bronchial breath sounds Gastrointestinal: distension (Moderate), other (Peritoneal dialysis catheter in place), No tenderness, No guarding Skin: other (No erythema, no ecchymoses, no induration, no fluctuance around the right-sided chest Port-A-Cath) Musculoskeletal: other (Full range of motion of the right wrist, full extension of the right fingers, no tenderness to palpation over the soft tissue edema on the dorsal surface) Neurologic: AAOx3, sensation intact bilaterally, other (Intermittent myoclonus of all 4 extremities) Psychiatric: interacting appropriately, not anxious, not encephalopathic, thought process linear Assessment & Plan Assessment: 61-year-old male presents with acute, recurrent right-sided pleural effusion in the setting of end-stage renal disease Plan: 1. Pleural effusion. Suspected, acute, new problem this provider, further workup indicated. Patient is symptomatic, has a history of pleural/peritoneal fistula status post pleurodesis by Dr. Sloan -get two view chest x-ray to gauge extent and whether this is effusion versus pneumonia -discussed with Dr. Carranza, he has reported to me that he has discussed with Interventional Radiology, they would prefer to perform thoracentesis 48 hours after last dose of Eliquis, can be sooner if emergent -will hold on ordering thoracentesis until the patient re-evaluated in a.m. to determine whether he requires this tomorrow or the day following 2. End-stage renal disease. Normal edema on bilateral lower extremities, mild edema on the right upper extremity, his accumulation of fluid in his abdomen and chest may improve with volume removal during dialysis tomorrow 3. Acute on chronic Chronic hypoxic respiratory failure. Evidenced by SpO2 in the 80s percent on 5 L nasal cannula oxygen with labored breathing with any exertion, per Dr. Carranza, continue on 45 L nasal cannula -secondary to worsening pleural effusion -admit to PCU in case patient requires intermittent BiPAP -get ABG to ensure he is not retaining 4. HIV. Chronic, continue patient's home medications once reconciled 5. Paroxysmal atrial fibrillation. Reviewed outside records including [address] Shahid, she reports the patient had a possible right lower lobe pneumonia as well as what seems to be provoked atrial fibrillation, initiated on systemic anticoagulation -holding Eliquis for thoracentesis -continue rate-controlling medications once reconciled 6. Moderate to severe mitral regurgitation. Chronic, present on cardiac catheterization, monitor volume status closely 7. Chronic systolic congestive heart failure. No evidence of acute exacerbation unless is determined that his pleural effusions are more likely related this then actual fistula -as mentioned above, remove volume with dialysis -last known ejection fraction 45% in May 2016 Diet. Renal Prophylaxis. High risk patient, currently on systemic anticoagulation, placed on SCDs in a.m. Code. Full, is MPOA Disposition. Anticipated discharge uncertain this time, anticipated length stay is greater than 48 hours warranting inpatient admission status for acute on chronic hypoxic respiratory failure in the setting of acute pleural effusion end-stage renal disease requiring further workup and treatment as outlined above , patient is high risk and high complexity patient.
[2017-01-25 19:04] LABS: % IMMATURE GRANULYOCYTES 0.8 % (0.0-1.1); ABSOLUTE IMMATURE GRANULOCYTES 0.07 10^3/uL (0.00-0.10); ADD DIFF? NO; ADD MORPH? NO; ADD SCAN? NO; ATYPICAL LYMPHOCYTE FLAG 10 (0-99); FRAGMENT RBC FLAG 0 (0-99); HEMATOCRIT 25.4 % (40.0-51.0); LEFT SHIFT FLG 0 (0-99); LIPEMIA HEMOLYSIS FLAG 80 (0-99); MEAN CELL HEMOGLOBIN 30.5 pg (27.9-34.1); MEAN CELL HEMOGLOBIN CONCENTR. 31.5 g/dL (32.4-36.7); MEAN CELL VOLUME 96.9 fL (81.5-99.8); MEAN PLATELET VOLUME 9.9 fL (8.7-11.7); PLATELET CLUMPS FLAG 0 (0-99); PLATELET COUNT 355 10^3/uL (150-400); RED BLOOD CELL COUNT 2.62 10^6/uL (4.40-6.38)
[2017-01-25 19:28] LABS: ALANINE AMINOTRANSFERASE 33 IU/L (21-72); ALBUMIN 3.7 g/dL (3.5-5.0); ALKALINE PHOSPHATASE 266 IU/L (38-126); ANION GAP 14 mEq/L (8-16); ASPARTATE AMINOTRANSFERASE 27 IU/L (17-59); BILIRUBIN,TOTAL 0.5 mg/dL (0.1-1.4); CALCIUM 9.9 mg/dL (8.5-10.4); CARBON DIOXIDE 28 mEq/l (22-31); CHLORIDE 96 mEq/L (97-110); GLOMERULAR FILTRATION RATE 7; GLUCOSE 104 mg/dL (70-100); SODIUM 138 mEq/L (134-144); TOTAL PROTEIN 8.1 g/dL (6.3-8.2)
[2017-01-25 19:49] LABS: CREATININE 8.3 mg/dL (0.7-1.3)
[2017-01-25] MEDS ORDERED: oxyCODONE IR 5 MG TAB PO PRN (19:56)
[2017-01-25] MEDS ORDERED: GENTAMICIN 0.1% CREAM TP PRN (19:56)
[2017-01-25] MEDS ORDERED: NON-FORMULARY NEW DRUG (Losartan Potassium [Cozaar] 100 MG) PO SCH (21:00)
[2017-01-25] MEDS ORDERED: NON-FORMULARY NEW DRUG (Carvedilol [Coreg] 12.5 MG) PO SCH (21:00)
[2017-01-25] MEDS ORDERED: ABACAVIR SULFATE 300 MG PO SCH (21:00)
[2017-01-25] MEDS: GABAPENTIN 300 MG CAP PO SCH (22:50)
[2017-01-25] MEDS: amLODIPine BESYLATE 5 MG TAB PO SCH (22:51)
[2017-01-25] MEDS: AMITRIPTYLINE HCL 50 MG TAB PO SCH (22:51)
[2017-01-25] MEDS: LOSARTAN POTASSIUM 50 MG TAB PO SCH (22:51)
[2017-01-25] MEDS: LAMIVUDINE PO SCH (22:54)
[2017-01-25] MEDS: RALTEGRAVIR 400 MG TAB PO SCH (23:01)
[2017-01-25] MEDS: ABACAVIR SULFATE 300 MG TAB PO SCH (23:01)
[2017-01-25] MEDS: CARVEDILOL 6.25 MG TAB PO SCH (23:13)
[2017-01-26 05:11] LABS: % IMMATURE GRANULYOCYTES 0.8 % (0.0-1.1); ABSOLUTE IMMATURE GRANULOCYTES 0.07 10^3/uL (0.00-0.10); ADD DIFF? NO; ADD MORPH? YES; ADD SCAN? NO; ATYPICAL LYMPHOCYTE FLAG 10 (0-99); FRAGMENT RBC FLAG 0 (0-99); HEMATOCRIT 21.7 % (40.0-51.0); LEFT SHIFT FLG 0 (0-99); LIPEMIA HEMOLYSIS FLAG 80 (0-99); MEAN CELL HEMOGLOBIN 30.4 pg (27.9-34.1); MEAN CELL HEMOGLOBIN CONCENTR. 30.4 g/dL (32.4-36.7); MEAN PLATELET VOLUME 10.1 fL (8.7-11.7); PLATELET CLUMPS FLAG 0 (0-99); PLATELET COUNT 307 10^3/uL (150-400); RED BLOOD CELL COUNT 2.17 10^6/uL (4.40-6.38); RED CELL DISTRIBUTION WIDTH 17.2 % (11.5-15.2)
[2017-01-26 05:16] LABS: HEMOGLOBIN 6.6 g/dL (13.7-17.5)
[2017-01-26 05:24] LABS: INR 1.18 (0.83-1.16)
[2017-01-26 05:25] LABS: APTT 30.3 SEC (23.0-38.0)
[2017-01-26 05:33] LABS: ANION GAP 10 mEq/L (8-16); CALCIUM 9.5 mg/dL (8.5-10.4); CARBON DIOXIDE 30 mEq/l (22-31); CHLORIDE 100 mEq/L (97-110); GLOMERULAR FILTRATION RATE 6; GLUCOSE 81 mg/dL (70-100); MAGNESIUM 2.6 mg/dL (1.6-2.3); POTASSIUM 4.8 mEq/L (3.5-5.2); SODIUM 140 mEq/L (134-144)
[2017-01-26 05:37] LABS: HYPOCHROMIA 1+; MACROCYTES 1+; PLATELET ESTIMATE ADEQUATE (ADEQ); POLYCHROMASIA 1+
[2017-01-26 05:49] LABS: CREATININE 9.3 mg/dL (0.7-1.3)
[2017-01-26] MEDS: CHOLECALCIFEROL VIT D3 1,000 UNITS TAB PO SCH (08:25)
[2017-01-26] MEDS: CARVEDILOL 6.25 MG TAB PO SCH ×2 (08:26→18:42)
[2017-01-26] MEDS: PANTOPRAZOLE SODIUM 40 MG TAB PO SCH (08:27)
[2017-01-26] MEDS: amLODIPine BESYLATE 5 MG TAB PO SCH ×2 (08:27→22:19)
[2017-01-26] MEDS: GABAPENTIN 300 MG CAP PO SCH ×2 (08:28→22:19)
[2017-01-26] MEDS: FUROSEMIDE 80 MG TAB PO SCH (08:28)
[2017-01-26] MEDS: ABACAVIR SULFATE 300 MG TAB PO SCH ×2 (08:29→22:20)
[2017-01-26] MEDS: RALTEGRAVIR 400 MG TAB PO SCH ×2 (08:31→22:23)
[2017-01-26] MEDS ORDERED: CINACALCET HCL 30 MG TAB PO SCH (09:00)
[2017-01-26] MEDS: Sevelamer Carbonate [Renvela] 2,400 MG PO SCH ×3 (09:02→18:43)
--- NOTE | 2017-01-26 09:38 | SOAPPROG ---
SOAP Progress Note Assessment/Plan: Assessment: 1. Recurrent pleural effusion. Timing seems to correlate directly with resumption of peritoneal dialysis. Most likely recurrent peritoneal-pleural leak. Has now failed 2nd pleurodesis. Surgical options seem limited. Therapeutic thoracentesis once safe (holding eliquis). Will ask Dr. Sloan to revisit whether there are any surgical options available. 2. ESRD. See above. For now will resume hemodialysis, starting today. Will likely need to plan on terminal worker hemodialysis. Plan: 01/26/17 09:40 01/26/17 09:43 01/26/17 09:45 Subjective: 61 yo with ESRD due to HTN/tenofovir toxicity, HIV, prior GBS, on peritoneal dialysis since around 2012. He has a history of peritoneopleural fluid leak s/p VATS pleurodesis with Dr. Sloan 05/27 and again in November of this year. After discharge he returned to PD for a short time but was hospitalized at [facility] due to complications from suprapubic catheter placement. Due to recurrent gross hematuria, he was placed on backup hemodialysis using a catheter. He had his last hemodialysis last Tuesday. He resumed peritoneal dialysis this week Tuesday evening. The next day he developed acute onset dyspnea. He was seen by Dr. Carranza and referred back here for admission. CXR showed recurrent right pleural effusion. Eliquis has been held and he is awaiting tap. He has had some twitching but otherwise no new complaints. He denies any fever or cough. No hematuria. Objective: Vital Signs Temp Pulse Resp BP Pulse Ox 36.6 C 93 19 158/71 H 92 01/26/17 08:00 01/26/17 08:00 01/26/17 08:00 01/26/17 08:00 01/26/17 08:00 Laboratory Results 01/26/17 04:07 01/26/17 04:07 01/25/17 01/26/17 01/27/17 05:59 05:59 05:59 Intake Total 240 Output Total 375 125 Balance -135 -125 PT 15.0 SEC (12.0-15.0) 01/26/17 04:07 INR 1.18 (0.83-1.16) H 01/26/17 04:07 Comfortable wm in good spirits, in bed RRR, no m/g/r Absent right basilar breath sounds with dullness to percussion over R base posteriorly Abdom soft, nontender. LLQ PD cath and SP cath in place No LE edema Frequent myoclonic twitches ICD10 Worksheet Patient Problems: Problems Problem Status Onset Afib Acute CHF (congestive heart failure) Acute Dyspnea Acute End stage renal disease on dialysis Acute Neuropathy Acute Pleural effusion on right Acute Pneumonia Acute Volume overload Acute
[2017-01-26] MEDS ORDERED: LIDOCAINE/PRILOCAINE 1 EACH CRTUBE TP PRN (10:49)
--- NOTE | 2017-01-26 15:19 | HOSPPROG ---
Hospitalist Progress Note Assessment/Plan: * recurrent right pleural effusion due to peritoneal dialysis * status post VATS month or so ago * this appears to have failed * probably need to switch over to hemodialysis * will get thoracentesis tomorrow since he has been on Eliquis * end-stage renal disease * will need to switch over to hemodialysis * history of atrial fibrillation * hold anticoagulation * anemia * getting blood transfusion * HIV * coronary artery disease * hypertension Subjective: does not feel particularly short of breath Objective: Vital Signs Temp Pulse Resp BP Pulse Ox 36.6 C 88 16 156/70 H 92 01/26/17 12:00 01/26/17 12:00 01/26/17 12:00 01/26/17 12:00 01/26/17 12:00 Laboratory Results 01/26/17 04:07 01/26/17 04:07 01/25/17 01/26/17 01/27/17 05:59 05:59 05:59 Intake Total 240 393 Output Total 375 125 Balance -135 268 PT 15.0 SEC (12.0-15.0) 01/26/17 04:07 INR 1.18 (0.83-1.16) H 01/26/17 04:07 discussed with Nephrology chest x-ray personally viewed interpreted - large right pleural effusion - Physical Exam Constitutional: no apparent distress, appears nourished, not in pain Eyes: anicteric sclera, EOMI Ears, Nose, Mouth, Throat: moist mucous membranes, hearing normal, ears appear normal Cardiovascular: regular rate and rhythym, no murmur, rub, or gallop Respiratory: no respiratory distress, no rales or rhonchi, clear to auscultation , reduced air movement ( right base) Gastrointestinal: normoactive bowel sounds, soft, non-tender abdomen, no palpable masses Skin: warm Neurologic: AAOx3 Psychiatric: interacting appropriately, not anxious, not encephalopathic, thought process linear ICD10 Worksheet Patient Problems: Problems Problem Status Onset Afib Acute CHF (congestive heart failure) Acute Dyspnea Acute End stage renal disease on dialysis Acute Neuropathy Acute Pleural effusion on right Acute Pneumonia Acute Volume overload Acute
--- NOTE | 2017-01-26 15:45 | SOAPPROG ---
SOAP Progress Note Assessment/Plan: Assessment/Plan: 61 Y M ESRD on dialysis, recurrent pleural effusion despite recent pleurodesis. Had previous pleurodesis which worked for several years. Currently on HD via neck catheter. Do not know of any further surgical solutions to continue PD. Will d/w surgeon (s). We discussed eventual AVF creation. He is hesitant, but seems willing to pursue this eventually. Could do this as an outpatient when Dr. Sloan is available late next week/early following week. Will get vein mapping. Avoid blood draws and cuffs on left arm. 01/26/17 15:41 Objective: Vital Signs Temp Pulse Resp BP Pulse Ox 36.6 C 88 16 156/70 H 92 01/26/17 12:00 01/26/17 12:00 01/26/17 12:00 01/26/17 12:00 01/26/17 12:00 Laboratory Results 01/26/17 04:07 01/26/17 04:07 01/25/17 01/26/17 01/27/17 05:59 05:59 05:59 Intake Total 240 393 Output Total 375 125 Balance -135 268 PT 15.0 SEC (12.0-15.0) 01/26/17 04:07 INR 1.18 (0.83-1.16) H 01/26/17 04:07 ICD10 Worksheet Patient Problems: Problems Problem Status Onset Afib Acute CHF (congestive heart failure) Acute Dyspnea Acute End stage renal disease on dialysis Acute Neuropathy Acute Pleural effusion on right Acute Pneumonia Acute Volume overload Acute
[2017-01-26] MEDS ORDERED: HEPARIN 50,000 UNIT/10 ML VIAL ONE (21:00)
[2017-01-26] MEDS: LOSARTAN POTASSIUM 50 MG TAB PO SCH (22:18)
[2017-01-26] MEDS: AMITRIPTYLINE HCL 50 MG TAB PO SCH (22:19)
[2017-01-26] MEDS: LAMIVUDINE PO SCH (22:21)
[2017-01-27] MEDS ORDERED: oxyCODONE IR 5 MG TAB PO ONE (02:30)
[2017-01-27 05:16] LABS: ABSOLUTE IMMATURE GRANULOCYTES 0.09 10^3/uL (0.00-0.10); ADD DIFF? NO; ADD MORPH? NO; ADD SCAN? NO; ATYPICAL LYMPHOCYTE FLAG 10 (0-99); FRAGMENT RBC FLAG 0 (0-99); HEMATOCRIT 24.4 % (40.0-51.0); HEMOGLOBIN 7.6 g/dL (13.7-17.5); LEFT SHIFT FLG 10 (0-99); LIPEMIA HEMOLYSIS FLAG 80 (0-99); MEAN CELL HEMOGLOBIN 30.6 pg (27.9-34.1); MEAN CELL HEMOGLOBIN CONCENTR. 31.1 g/dL (32.4-36.7); MEAN CELL VOLUME 98.4 fL (81.5-99.8); MEAN PLATELET VOLUME 9.7 fL (8.7-11.7); PLATELET CLUMPS FLAG 0 (0-99); PLATELET COUNT 261 10^3/uL (150-400); RED BLOOD CELL COUNT 2.48 10^6/uL (4.40-6.38); RED CELL DISTRIBUTION WIDTH 17.2 % (11.5-15.2)
[2017-01-27 05:28] LABS: ALBUMIN 2.9 g/dL (3.5-5.0); ANION GAP 7 mEq/L (8-16); CALCIUM 9.3 mg/dL (8.5-10.4); CARBON DIOXIDE 29 mEq/l (22-31); CHLORIDE 99 mEq/L (97-110); CREATININE 4.9 mg/dL (0.7-1.3); GLOMERULAR FILTRATION RATE 12; GLUCOSE 77 mg/dL (70-100); SODIUM 135 mEq/L (134-144)
[2017-01-27] MEDS: GABAPENTIN 300 MG CAP PO SCH (08:32)
[2017-01-27] MEDS: CHOLECALCIFEROL VIT D3 1,000 UNITS TAB PO SCH (08:32)
[2017-01-27] MEDS: CARVEDILOL 6.25 MG TAB PO SCH (08:33)
[2017-01-27] MEDS: FUROSEMIDE 80 MG TAB PO SCH (08:33)
[2017-01-27] MEDS: amLODIPine BESYLATE 5 MG TAB PO SCH (08:33)
[2017-01-27] MEDS: PANTOPRAZOLE SODIUM 40 MG TAB PO SCH (08:34)
[2017-01-27] MEDS: ABACAVIR SULFATE 300 MG TAB PO SCH (08:35)
[2017-01-27] MEDS: RALTEGRAVIR 400 MG TAB PO SCH (08:39)
[2017-01-27] MEDS: Sevelamer Carbonate [Renvela] 2,400 MG PO SCH ×2 (08:39→13:10)
[2017-01-27 09:03] VITALS: RESP 15; TEMP 97.5; O2SAT 93
--- NOTE | 2017-01-27 10:04 | SOAPPROG ---
SOAP Progress Note Assessment/Plan: Assessment: 61yo male with recurrent pleural effusion, history of VATS for same issue frustrated, doing well overall though. Plan: seen by Dr Baez after vein mapping ok to F/U with Dr Sloan outpt to make plan of either repeated VATS attempt vs AVF creation. 01/27/17 10:03 Objective: Vital Signs Temp Pulse Resp BP Pulse Ox 36.4 C 66 15 189/82 H 93 01/27/17 09:01 01/27/17 09:01 01/27/17 09:01 01/27/17 09:01 01/27/17 09:01 Laboratory Results 01/27/17 04:20 01/27/17 04:20 01/26/17 01/27/17 01/28/17 05:59 05:59 05:59 Intake Total 240 893 Output Total 375 815 200 Balance -135 78 -200 PT 15.0 SEC (12.0-15.0) 01/26/17 04:07 INR 1.18 (0.83-1.16) H 01/26/17 04:07 ICD10 Worksheet Patient Problems: Problems Problem Status Onset Afib Acute CHF (congestive heart failure) Acute Dyspnea Acute End stage renal disease on dialysis Acute Neuropathy Acute Pleural effusion on right Acute Pneumonia Acute Volume overload Acute
[2017-01-27] MEDS ORDERED: NA BICARBONATE 50 MEQ/50 ML VIAL ONE (10:42)
[2017-01-27] MEDS ORDERED: LIDOCAINE 1% 30 ML SDV ONE (10:42)
--- NOTE | 2017-01-27 11:21 | SOAPPROG ---
SOAP Progress Note Assessment/Plan: Assessment/Plan: ESRD: pt previously on PD, no won HD x2 weeks. Given his recurrent pleural effusion with concern for persistent peritoneapleural leak even after VATS, likely needs to stay on HD at this time. - HD done yesterday. - Next HD due tomorrow. - Appreciate Dr. Sloan reviewing his case. Anemia: pt transfused yesterday, epo and iron to be given per outpatient dialysis unit protocol. HTN: continue home meds. Subjective: No acute events overnight. HD done yesterday with no issues, also got transfused PRBCs yesterday. Pt stilll with some dyspnea, getting thoracentesis later today. Objective: Vital Signs Temp Pulse Resp BP Pulse Ox 36.4 C 66 15 152/63 H 93 01/27/17 09:01 01/27/17 09:01 01/27/17 09:01 01/27/17 10:00 01/27/17 09:01 Laboratory Results 01/27/17 04:20 01/27/17 04:20 01/26/17 01/27/17 01/28/17 05:59 05:59 05:59 Intake Total 240 893 Output Total 375 815 200 Balance -135 78 -200 PT 15.0 SEC (12.0-15.0) 01/26/17 04:07 INR 1.18 (0.83-1.16) H 01/26/17 04:07 General: alert and oriented, no acute distress Eyes; EOMI, PERRL OP: Clear CV: RRR Resp: nonlabored respirations on NC Abd; Soft, NT/ND Ext: no edema BLE Neuro: CN II-XII grossly intact, no asterixis Psych: cooperative, appropriate mood and affect Access: R IJ tunneled catheter ICD10 Worksheet Patient Problems: Problems Problem Status Onset Afib Acute CHF (congestive heart failure) Acute Dyspnea Acute End stage renal disease on dialysis Acute Neuropathy Acute Pleural effusion on right Acute Pneumonia Acute Volume overload Acute
[2017-01-27 12:42] VITALS: BP 161/82; PULSE 61
--- NOTE | 2017-01-27 14:49 | GDS ---
[f rep st] DISCHARGE SUMMARY DISCHARGE DIAGNOSES: 1. Recurrent right pleural effusion due to peritoneal dialysis. 2. Recent history of VATS procedure to deal with above problem. 3. End-stage renal disease, now on hemodialysis. 4. Acute on chronic hypoxic respiratory failure. 5. History of atrial fibrillation. 6. Human immunodeficiency virus. 7. Coronary artery disease. HISTORY: This is a 61-year-old male who was admitted in November for recurrent right pleural effusio n. He did have VATS at that time, effusion due to peritoneal dialysis. Appropriate he has stayed o n hemodialysis for the last several weeks, but then when he started peritoneal dialysis he had recur rence of his effusion. He came in with hypoxia. HOSPITAL COURSE: Patient was admitted and on anticoagulation. He was not in imminent re spiratory danger and thus we waited until 48 hours after his last Eliquis dose. He had a thoracente sis which removed 650 cc of fluid. He is feeling better and he is back on his home oxygen level/edwin e oxygen requirement. He is going to be discharged home and he will continue hemodialysis. Domingo morris for the future ongoing for possible fistula placement. /[id number]/MODL
--- NOTE | 2017-01-27 16:25 | PDIAF ---
- Diagnosis Diagnosis: effusion Code Status: Full Code - Medication Management Discharge Medications: Medications to Continue on Transfer Abacavir Sulfate [Abacavir] 300 mg PO BID 11/29/16 [Last Taken 01/25/17 08:00] Amitriptyline HCl [Elavil 50 mg (*)] 50 mg PO HS 11/29/16 [Last Taken 01/24/17] Apixaban [Eliquis] 2.5 mg PO BID 11/29/16 [Last Taken 01/25/17 08:00] Carvedilol [Coreg] 12.5 mg PO BID 11/29/16 [Last Taken 01/25/17 08:00] Cinacalcet HCl [Sensipar (*)] 30 mg PO MOWEFR@11/29/16 [Last Taken 11/25/16] Furosemide [Lasix 80 MG (*)] 80 mg PO DAILY 11/29/16 [Last Taken 01/25/17 08:00] Gabapentin [Neurontin 300 MG (*)] 300 mg PO BID 11/29/16 [Last Taken 01/25/17 08 :00] Losartan Potassium [Cozaar] 100 mg PO HS 11/29/16 [Last Taken 01/24/17] Pantoprazole Sodium [Protonix 40mg (*)] 40 mg PO DAILY 11/29/16 [Last Taken ] Raltegravir [Isentress] 400 mg PO BID 11/29/16 [Last Taken 01/25/17 08:00] Sevelamer Carbonate [Renvela] 2,400 mg PO TIDMEAL 11/29/16 [Last Taken 01/25/17] amLODIPine BESYLATE [Norvasc 5 mg (*)] 5 mg PO BID 11/29/16 [Last Taken 08:00] lamIVUDine [Epivir] 25 mg PO HS 11/29/16 [Last Taken 01/24/17] oxyCODONE IR [Oxycodone Ir (*)] 5 mg PO DAILY PRN 11/29/16 [Last Taken 11/26/16] Cholecalciferol Vit D3 [Vitamin D3 (*)] 2,000 units PO DAILY 01/25/17 [Last Taken 01/25/17] Gentamicin 0.1% 1 indu TP DAILY PRN 01/25/17 [Last Taken Unknown] Lidocaine/Prilocaine [Emla Cream] 1 indu TP TID PRN 01/26/17 [Last Taken Unknown] Discharge Medications: Refer to the Discharge Home Medication list for PRN reason. - Orders Services needed: Home Care, Registered Nurse, Physical Therapy, Occupational Therapy Home Care Face to Face: I certify that this patient was under my care and that I had the required [id number] encounter meeting the encounter requirements on the discharge day. My findings support the fact that the patient is homebound as defined in CMS Chapter 7 Medicare Benefits Manual 30.1.1, The condition of the patient is such that there exists a normal inability to leave home and consequently, leaving home would require a considerable and taxing effort. - Follow Up Care Current Providers and Referrals: JOSUE GUILLORY [Other]
== END 2017-01-27 15:30 | disposition home health service (06) | DRG 186 ==
LOC: F2W 18:05 → OBSVTOIN 18:45
PROVIDERS: ADMIT Internal Medicine; ATTEND Internal Medicine
PROC: 5A1D00Z (ICD-10-PCS; principal; 2017-01-26)
PROC: 30233N1 Transfusion of Nonautologous Red Blood Cells into Peripheral Vein, Percutaneous Approach (ICD-10-PCS; 2017-01-26)
PROC: 0W993ZZ Drainage of Right Pleural Cavity, Percutaneous Approach (ICD-10-PCS; 2017-01-27)
DX: J90 Pleural effusion, not elsewhere classified (principal); J96.21 Acute and chronic respiratory failure with hypoxia; N18.6 End stage renal disease; I50.22 Chronic systolic (congestive) heart failure; D64.9 Anemia, unspecified; I48.0 Paroxysmal atrial fibrillation; I25.10 Atherosclerotic heart disease of native coronary artery without angina pectoris; I34.0 Nonrheumatic mitral (valve) insufficiency; Z21 Asymptomatic human immunodeficiency virus [HIV] infection status; Z99.2 Dependence on renal dialysis
CPT/HCPCS: 97116-GP; 97163-GP; 97165-GO; 97530-GP; G8978-GP-CK; G8979-GP-CI; G8987-GO-CK; G8988-GO-CI; J1644; P9016

== ENCOUNTER → 2017-03-11 | Outpatient (CLI) | payer OTHER | LOC: BHFA 10:45 | PROVIDERS: ATTEND Internal Medicine Cardiovascular Disease | DX: Z01.810 Encounter for preprocedural cardiovascular examination (principal); I10 Essential (primary) hypertension; I48.91 Unspecified atrial fibrillation; R06.02 Shortness of breath ==

== ENCOUNTER 2017-03-29 12:25 | Day surgery (SDC) | payer OTHER ==
[~2017-03-29 12:25] MED LIST: ceFAZolin 2 GM/DEXTROSE 100 ML IV ONE
[2017-03-29 13:35] LABS: % IMMATURE GRANULYOCYTES 0.2 % (0.0-1.1); ABSOLUTE IMMATURE GRANULOCYTES 0.01 10^3/uL (0.00-0.10); ADD DIFF? NO; ADD MORPH? NO; ADD SCAN? NO; ATYPICAL LYMPHOCYTE FLAG 10 (0-99); FRAGMENT RBC FLAG 0 (0-99); HEMATOCRIT 31.4 % (40.0-51.0); HEMOGLOBIN 9.6 g/dL (13.7-17.5); LEFT SHIFT FLG 0 (0-99); LIPEMIA HEMOLYSIS FLAG 80 (0-99); MEAN CELL HEMOGLOBIN 30.9 pg (27.9-34.1); MEAN CELL HEMOGLOBIN CONCENTR. 30.6 g/dL (32.4-36.7); MEAN PLATELET VOLUME 9.6 fL (8.7-11.7); PLATELET CLUMPS FLAG 0 (0-99); PLATELET COUNT 223 10^3/uL (150-400); RED BLOOD CELL COUNT 3.11 10^6/uL (4.40-6.38); RED CELL DISTRIBUTION WIDTH 18.3 % (11.5-15.2)
[2017-03-29] MEDS ORDERED: NS 1,000 ML IV ONE (14:02)
[2017-03-29 14:04] LABS: ANION GAP 13 mEq/L (8-16); CALCIUM 9.4 mg/dL (8.5-10.4); CARBON DIOXIDE 26 mEq/l (22-31); CHLORIDE 99 mEq/L (97-110); CREATININE 4.6 mg/dL (0.7-1.3); GLOMERULAR FILTRATION RATE 13; GLUCOSE 71 mg/dL (70-100); POTASSIUM 4.3 mEq/L (3.5-5.2); SODIUM 138 mEq/L (134-144)
[2017-03-29] MEDS ORDERED: THROMBIN (BOVINE) 20,000 UNIT VIAL TP ONE (14:52)
[2017-03-29] MEDS ORDERED: THROMBIN (BOVINE) 5,000 UNIT VIAL TP ONE (14:52)
[2017-03-29] MEDS ORDERED: PROTAMINE SULFATE 50 MG/5 ML VIAL IVP ONE (14:52)
[2017-03-29] MEDS ORDERED: PAPAVERINE HCL 60 MG/2 ML SDV ONE (14:53)
[2017-03-29] MEDS ORDERED: BUPIVACAINE 0.5% 30 ML SDV ONE (14:53)
[2017-03-29] MEDS ORDERED: fentaNYL 100 MCG/2 ML INJ ONE (15:08)
[2017-03-29] MEDS ORDERED: MIDAZOLAM 2 MG/2 ML VIAL ONE (15:23)
[2017-03-29] MEDS ORDERED: epHEDrine SULFATE 10 MG/ML SYR ONE (16:13)
[2017-03-29] MEDS ORDERED: PHENYLEPHRINE HCL 100 MCG/ML SYR ONE ×2 (16:13→16:22)
[2017-03-29] MEDS ORDERED: PROPOFOL 200 MG/20 ML VIAL ONE (16:15)
[2017-03-29] MEDS ORDERED: OXYCODONE/APAP 5/325 TAB ONE (18:47)
--- NOTE | 2017-03-30 07:10 | GOP ---
[f rep st] OPERATIVE REPORT DATE OF OPERATION: 03/29/2017 SURGEON: Emmanuel Sloan MD SUSTAINABILITY COORDINATOR: GREYSON Dupree. ANESTHESIOLOGIST: Dr. Dietrich. PREOPERATIVE DIAGNOSIS: Chronic renal failure and recurrent pleural effusions. POSTOPERATIVE DIAGNOSIS: Chronic renal failure and recurrent pleural effusions. PROCEDURE PERFORMED: Removal of peritoneal dialysis catheter. FINDINGS: No signs of infection no signs of infection DESCRIPTION OF PROCEDURE: The patient was taken to the operating room where he received satisfactory general endotracheal anesthesia by Dr. Dietrich. He was placed in supine position, prepped and draped in usual sterile fashion. A transverse incision was made over the catheter insertion site. Dissection extended down along the catheter to the fascia, which was incised. The Dacron cuff was freed up from the fascial edges until the intact catheter could be retracted out of the peritoneal cavity. The defect was closed with interrupted 2-0 Vicryl sutures and infiltrated 0.50% Marcaine. Distal cuff was then dissected free from the subcutaneous tissue. Catheter was completely removed. Hemostasis was assured. The wound was infiltrated with 0.50% Marcaine. Subcu was closed with 3-0 Vicryl and the skin with a 4-0 Monocryl subcuticular stitch. He tolerated the procedure well, taken to the recovery room in good condition. No complications. /[id number]/MODL MTDD
--- NOTE | 2017-03-30 07:15 | GOP ---
[f rep st] OPERATIVE REPORT DATE OF OPERATION: 03/29/2017 SURGEON: Emmanuel Sloan MD ENVELOPE CUTTER: ANMOL Arredondo. ANESTHESIOLOGIST: Jerzy Dietrich MD. PREOPERATIVE DIAGNOSIS: Chronic renal failure and recurrent pleural effusions. POSTOPERATIVE DIAGNOSIS: Chronic renal failure and recurrent pleural effusions. PROCEDURE PERFORMED: Left arm radiocephalic arteriovenous fistula and ultrasound vein mapping of th e left arm. FINDINGS: Patient was found to have an adequate cephalic vein at the wrist and an adequate radial a rtery. DESCRIPTION OF PROCEDURE: The patient was taken to the operating room where he received satisfactor y general endotracheal anesthesia by Dr. Dietrich. He was placed in supine position with his left arm outstretched on an arm board, prepped and draped in usual sterile fashion. Using ultrasound, the ve ins of the arm were mapped, and he had excellent cephalic veins above and below the elbow as well as a good basilic vein above and below the elbow. It was elected to proceed with a radiocephalic AV f istula. Incision was made at the distal wrist over the radial artery which was then dissected free from underneath the fascia and encircled with vessel loops for control. The cephalic vein was then dissected free underneath the radial flap until it could be mobilized over to the radial artery. Th e patient was systemically heparinized, and after adequate circulation time, a [id number] anastomo sis was made between the cephalic vein and the radial artery, creating a 1 cm anastomosis. Hemostas is was assured. flow was first established through the AV fistula and then back down the hand, main taining good capillary filling and a good distal radial pulse in the hand as well as a good AV fistu la flow in the cephalic vein. Heparin was reversed with protamine. The wound was infiltrated with 0.5% Marcaine. Some topical thrombin was placed in the surgical cavity. Wound was closed with some interrupted 3-0 Vicryl sutures for the subcutaneous tissue and a running 4-0 Monocryl subcuticular stitch for the skin. He tolerated the procedure well. Blood loss was less than 10 cc. There were no complications. He was taken to the recovery room in good condition. /[id number]/MODL
== END 2017-03-29 19:30 | disposition home health service (06) ==
LOC: FSGY 12:25 → UNDOADMOB 12:25 → F3N 12:25 → EDSTATUS 14:00 → F3N 16:00 → F3E 16:00 → FSGY 19:30
PROVIDERS: ATTEND Surgery
DX: N18.9 Chronic kidney disease, unspecified (principal); J90 Pleural effusion, not elsewhere classified; I50.22 Chronic systolic (congestive) heart failure; G47.33 Obstructive sleep apnea (adult) (pediatric); Z79.01 Long term (current) use of anticoagulants
CPT/HCPCS: J0690; J1644; J2250; J2370; J2440; J2704; J2720; J3010

== ENCOUNTER 2017-05-11 12:11 | Day surgery (SDC) | payer OTHER ==
[2017-05-11] MEDS ORDERED: NS 1,000 ML IV ONE (13:00)
[2017-05-11] MEDS ORDERED: ceFAZolin 2 GM/DEXTROSE 100 ML IV ONE (14:49)
--- NOTE | 2017-05-11 14:50 | PDHPUP ---
History & Physical Update H&P update statement: This history and physical update is based on an assessment of the patient which was completed after admission or registration (within 24 hours), but prior to the surgery/procedure. H&P update: H&P reviewed & patient examined, no change in patient's condition since H&P completed
--- NOTE | 2017-05-11 14:54 | PDANEPAE ---
ANE History of Present Illness 61 year old male with ESRD on HD M/W/F. Did not have dialysis today. ANE Past Medical History Past Medical History: Pt had a CVA, [place] in 2014 with residual hand weakness, CHF, ESRD secondary to HTN, CAD, pulmonic stenosis. - Cardiovascular History Hx Hypertension: Yes Hx Arrhythmias: Yes Hx Chest Pain: No Hx Coronary Artery / Peripheral Vascular Disease: Yes Hx CHF / Valvular Disease: Yes Hx Palpitations: No Cardiovascular History Comment: MURMUR- PULM STENOSIS. htn. cad. chf. afib/ aflutter. Malignant htn - Pulmonary History Hx COPD: No Hx Asthma/Reactive Airway Disease: No Hx Recent Upper Respiratory Infection: No Hx Oxygen in Use at Home: Yes O2 in Use at Home (L/minute): 2l Hx Sleep Apnea: No Pulmonary History Comment: PULM STENOSIS. HX PNEUMONIA X 1. recurrent pleural effusions with hx of VATS 12/04/16 with [facility]. sob - Neurologic History Hx Cerebrovascular Accident: Yes Hx Seizures: No Hx Dementia: No Neurologic History Comment: embolic cva. guillian barretts s/p fall in 2014 - Endocrine History Hx Diabetes: No - Renal History Hx Renal Disorders: Yes Renal History Comment: CHRONIC KIDNEY DISEASE. ON DIALYSIS X 3 WK- [facility] - Liver History Hx Hepatic Disorders: No - Neurological & Psychiatric Hx Hx Neurological and Psychiatric Disorders: No - Cancer History Hx Cancer: No - Congenital Disorder History Hx Congenital Disorders: No Congenital History Comment: PULM STENOSIS - GI History Hx Gastrointestinal Disorders: Yes Gastrointestinal History Comment: HERNIA INFANT- REP SURG. HEMORRHOIDS - Other Health History Other Health History: ANEMIA. GOUT. wears contacts - Chronic Pain History Chronic Pain: Yes (Neuropathy in BLE) - Surgical History Prior Surgeries: 12/04/16 vats with [facility] for pleural effusion. PERITONEAL CAT 08-03-13. HEMIDIALYSIS CATH 3 WKS AGO AT [facility]. HERNIA REP INFANT ANE Review of Systems Review of Systems: No URI/fever x2 weeks. Chronic dry cough unchanged. - Exercise capacity METS (RN): 2 METS - Systems Constitutional: Reports: no symptoms Cardiac: Reports: no symptoms Respiratory: Reports: cough, shortness of breath Gastrointestinal: Reports: no symptoms Muscolosketal: Reports: other (weak hands) ANE Patient History - Allergies Allergies/Adverse Reactions: No Known Allergies Allergy (Unverified 11/29/16 16:28) - Home Medications Home Medications: Abacavir Sulfate [Abacavir] 300 mg PO BID 11/29/16 [Last Taken 05/11/17] Amitriptyline HCl [Elavil 50 mg (*)] 50 mg PO HS 11/29/16 [Last Taken 05/10/17] Apixaban [Eliquis] 2.5 mg PO BID 11/29/16 [Last Taken 05/09/17] Carvedilol [Coreg] 18.75 mg PO BID 11/29/16 [Last Taken 05/11/17] Cinacalcet HCl [Sensipar (*)] 30 mg PO MOWEFR@09 11/29/16 [Last Taken 05/11/17] Furosemide [Lasix 80 MG (*)] 80 mg PO DAILY 11/29/16 [Last Taken 05/11/17] Gabapentin [Neurontin 300 MG (*)] 300 mg PO BID 11/29/16 [Last Taken 05/11/17] Losartan Potassium [Cozaar] 100 mg PO HS 11/29/16 [Last Taken 05/10/17] Pantoprazole Sodium [Protonix 40mg (*)] 40 mg PO DAILY 11/29/16 [Last Taken ] Raltegravir [Isentress] 400 mg PO BID 11/29/16 [Last Taken 05/11/17] Sevelamer Carbonate [Renvela] 2,400 mg PO TIDMEAL 11/29/16 [Last Taken 05/10/17] amLODIPine BESYLATE [Norvasc 5 mg (*)] 5 mg PO BID 11/29/16 [Last Taken 05/11/17 ] lamIVUDine [Epivir] 25 mg PO HS 11/29/16 [Last Taken 05/11/17] oxyCODONE IR [Oxycodone Ir (*)] 5 mg PO DAILY PRN 11/29/16 [Last Taken 05/04/17] Cholecalciferol Vit D3 [Vitamin D3 (*)] 2,000 units PO DAILY 01/25/17 [Last Taken 05/09/17] Gentamicin 0.1% 1 indu TP DAILY PRN 01/25/17 [Last Taken 03/29/17] Lidocaine/Prilocaine [Emla Cream] 1 indu TP TID PRN 01/26/17 [Last Taken 03/29/17 ] Minoxidil 2.5 mg (*) 05/11/17 [Last Taken 05/11/17] - NPO status NPO Since - Liquids (Date): 05/11/17 NPO Since - Liquids (Time): 11:40 NPO Since - Solids (Date): 05/10/17 NPO Since - Solids (Time): 20:00 - Smoking Hx Smoking Status: Never smoked - Family Anes Hx Family Hx Anesthesia Complications: NONE ANE Labs/Vital Signs - Vital Signs Blood Pressure: 155/63 Heart Rate: 72 Respiratory Rate: 14 O2 Sat (%): 94 Height: 175.26 cm Weight: 65.771 kg ANE Physical Exam - Airway Neck exam: FROM Mallampati Score: Class 2 Mouth exam: normal dental/mouth exam - Pulmonary Pulmonary: dullness to percussion - Cardiovascular Cardiovascular: systolic murmur - ASA Status ASA Status: IV
[2017-05-11] MEDS ORDERED: THROMBIN (BOVINE) 5,000 UNIT VIAL TP ONE (15:10)
[2017-05-11] MEDS ORDERED: PROTAMINE SULFATE 50 MG/5 ML VIAL IVP ONE (15:10)
[2017-05-11] MEDS ORDERED: BUPIVACAINE 0.5% 30 ML SDV ONE (15:10)
[2017-05-11] MEDS ORDERED: PAPAVERINE HCL 60 MG/2 ML SDV ONE (15:11)
[2017-05-11] MEDS ORDERED: fentaNYL 100 MCG/2 ML INJ ONE ×3 (15:24→15:26)
[2017-05-11] MEDS ORDERED: PROPOFOL/EMULSION 500 MG/50 ML BOTTLE IV ONE ×2 (15:25→16:41)
[2017-05-11] MEDS ORDERED: DEXAMETHASONE 4 MG/ML VIAL ONE (15:25)
[2017-05-11] MEDS ORDERED: LIDOCAINE 2% 5 ML SDV ONE (15:25)
[2017-05-11] MEDS ORDERED: epHEDrine SULFATE 10 MG/ML SYR ONE ×2 (15:58)
[2017-05-11] MEDS ORDERED: VASOPRESSIN 20 UNIT/ML VIAL ONE (16:00)
[2017-05-11] MEDS ORDERED: HEPARIN 10,000 UNIT/10 ML MDV ONE (16:11)
[2017-05-11] MEDS ORDERED: PROMETHAZINE HCL 25 MG/ML INJ IVP PRN (17:29)
[2017-05-11] MEDS ORDERED: NALOXONE HCL 0.4 MG/ML INJ IVP PRN (17:29)
[2017-05-11] MEDS ORDERED: fentaNYL 100 MCG/2 ML INJ IVP PRN (17:29)
[2017-05-11] MEDS ORDERED: ACETAMINOPHEN 500 MG TAB PO PRN (17:29)
[2017-05-11] MEDS ORDERED: HYDROCODONE/APAP 5/325 TAB PO PRN ×2 (17:29→18:45)
[2017-05-11] MEDS ORDERED: ONDANSETRON 4 MG/2 ML VIAL ONE (17:30)
[2017-05-11 18:03] VITALS: TEMP 96.6
[2017-05-11 18:28] LABS: ANION GAP 15 mEq/L (8-16); CALCIUM 8.4 mg/dL (8.5-10.4); CARBON DIOXIDE 19 mEq/l (22-31); CHLORIDE 101 mEq/L (97-110); CREATININE 7.4 mg/dL (0.7-1.3); GLOMERULAR FILTRATION RATE 8; GLUCOSE 97 mg/dL (70-100); POTASSIUM 4.5 mEq/L (3.5-5.2); SODIUM 135 mEq/L (134-144)
--- NOTE | 2017-05-11 18:28 | POSTANESTH ---
Post Anesthetic Evaluation Cardiovascular Status: Normal, Stable Respiratory Status: Requires Airway Assist Level of Consciousness/Mental Status: Can Participate in Eval, Mildly Sleepy, Arousable Pain Control: Adequate, Prn Tx Ordered Nausea/Vomiting Control: Adequate, Prn Tx Ordered (Pt on BiPAP. Shallow breaths on arrival in PACU. Given baseline weakness from neurologic events in past, initiated BiPAP until patient wide awake.)
[2017-05-11 19:38] VITALS: BP 151/63; PULSE 70; RESP 12; O2SAT 100
--- NOTE | 2017-07-20 13:27 | GOP ---
[f rep st] OPERATIVE REPORT DATE OF OPERATION: 05/11/2017 SURGEON: Emmanuel Sloan MD BATTER MIXER HELPER: Freda Raymond PA-C. PREOPERATIVE DIAGNOSIS: Arteriovenous fistula stricture. POSTOPERATIVE DIAGNOSIS: Arteriovenous fistula stricture. PROCEDURE PERFORMED: Arteriovenous fistula revision with reverse saphenous vein graft. FINDINGS: The patient was found to have a short focal stenosis of his AV fistula at the site of a la rge collateral. He maintained good flow in the fistula following revision. DESCRIPTION OF PROCEDURE: Patient taken to the operating room where he received satisfactory general endotracheal anesthesia by Dr. Whittaker. He was placed in supine position with his left arm outstret ched on an arm board. His left leg was also prepped and draped in sterile fashion. Incision was mad e along the course of the AV fistula near the large collateral, and the stricture was isolated. The vessel was controlled above and below this area with vessel loops, and the collateral vein itself was controlled with a silk loop, appeared to be a short segment involved. Incision was made in the ante rior medial left thigh, and dissection extended down the saphenous vein, which was dissected free. A short segment of the vein was taken out to use for the vein graft. Multiple tributaries were ligate d. Saphenous vein graft was then taken up to the incision. The stenotic segment was excised, and th e collateral vein was ligated with silk ties. Interposition of the graft was then done with a revers e saphenous vein graft. This was done with a running 6-0 Prolene suture on either end in a beveled t echnique for the anastomosis. Flow was reestablished with good flow through the fistula. The patien t had been systemically heparinized for this portion of the procedure, and the heparin was now revers ed with protamine. Hemostasis was assured. The incision was then closed with some 3-0 Vicryl for th e subcu and a 4-0 Monocryl subcuticular stitch for the skin and Dermabond dressing. He tolerated the procedure well. There were no complications. Prior to the procedure, the vessels had been evaluate d with ultrasound both in the left leg and in the AV fistula itself demonstrating the exact location of the stenosis and the availability of the saphenous vein for bypass graft. The leg wound was close d with 3-0 Vicryl for the subcu and a 4-0 Monocryl subcuticular stitch for the skin. All wounds were infiltrated with 0.5% Marcaine. He tolerated procedure well, taken to recovery room in good conditi on. /[id number]/MODL
== END 2017-05-11 20:25 | disposition home or self-care (01) ==
LOC: FSGY 12:11
PROVIDERS: ATTEND Surgery
PROC: 05WY07Z Revision of Autologous Tissue Substitute in Upper Vein, Open Approach (ICD-10-PCS; principal; 2017-05-11 14:45)
DX: T82.398A Other mechanical complication of other vascular grafts, initial encounter (principal); I13.2 Hypertensive heart and chronic kidney disease with heart failure and with stage 5 chronic kidney disease, or end stage renal disease; N18.6 End stage renal disease; I50.9 Heart failure, unspecified; I25.10 Atherosclerotic heart disease of native coronary artery without angina pectoris; I48.91 Unspecified atrial fibrillation
CPT/HCPCS: J0690; J1100; J1644; J2405; J2440; J2704; J2720; J3010

== ENCOUNTER → 2017-12-06 | Outpatient (CLI) | payer OTHER | LOC: BHFA 11:30 | PROVIDERS: ATTEND Internal Medicine Cardiovascular Disease | DX: I50.9 Heart failure, unspecified (principal) ==

== ENCOUNTER → 2017-12-15 | Outpatient (CLI) | payer OTHER | LOC: BHFA 10:30 | PROVIDERS: ATTEND Internal Medicine Cardiovascular Disease | DX: I48.91 Unspecified atrial fibrillation (principal); I10 Essential (primary) hypertension; I34.0 Nonrheumatic mitral (valve) insufficiency ==

== ENCOUNTER 2018-01-17 11:37 | Day surgery (SDC) | payer OTHER ==
[2018-01-17] MEDS ORDERED: fentaNYL 100 MCG/2 ML INJ IVP PRN (11:55)
[2018-01-17] MEDS ORDERED: FLUMAZENIL 0.5 MG/5 ML MDV IVP PRN (11:55)
[2018-01-17] MEDS ORDERED: MIDAZOLAM 2 MG/2 ML VIAL IVP PRN (11:55)
[2018-01-17] MEDS ORDERED: ALTEPLASE 2 MG VIAL IVP PRN (11:55)
[2018-01-17] MEDS ORDERED: PROTAMINE SULFATE 50 MG/5 ML VIAL IVP PRN (11:55)
[2018-01-17] MEDS ORDERED: HEPARIN 10,000 UNIT/10 ML MDV (1,000 UNIT/ML) IVP PRN (11:55)
[2018-01-17] MEDS ORDERED: MEPERIDINE 25 MG/ML SYR IVP PRN (11:55)
[2018-01-17] MEDS ORDERED: NALOXONE HCL 0.4 MG/ML INJ IVP PRN (11:55)
[2018-01-17] MEDS ORDERED: NS 1,000 ML IV SCH (12:00)
--- NOTE | 2018-01-17 12:58 | PDGENHP ---
History & Physical Chief Complaint: ESRD. 6MO LUE FISTULA History of Present Illness: CHECK FISTULA Pertinent Past, Social, Family History: HIV +, HTN, PD DIALYSIS, STROKE. Relevant Physical Exam: GOOD THRILL IN LUE FISTULA Cardiorespiratory Assessment: RRR,CTA
--- NOTE | 2018-01-17 12:58 | PDPROPOC ---
Sedation Plan of Care Sedation Plan of Care: vital signs stable, mental status noted, patient educated of risks, benefits, alternatives, patient can tolerate sedation ASA Classification: ASA 3 Planned drugs: fentanyl, midazolam Mallampati Score: Class 1 Mallampati Reference Image: Patient passed 3-3-2 rule?: Yes
[2018-01-17] MEDS ORDERED: IOPAMIDOL (ISOVUE-300) 100 ML BTL ONE (13:25)
[2018-01-17 15:09] VITALS: BP 148/58
== END 2018-01-17 15:11 | disposition home or self-care (01) ==
LOC: FIMAGING 11:37
PROVIDERS: ATTEND Internal Medicine Nephrology
PROC: 03HY33Z Insertion of Infusion Device into Upper Artery, Percutaneous Approach (ICD-10-PCS; principal; 2018-01-17 13:49)
DX: Z45.2 Encounter for adjustment and management of vascular access device (principal); I77.0 Arteriovenous fistula, acquired
CPT/HCPCS: 36901; 99152; C1769; J1644; J2250; J2310; J3010; Q9967

== ENCOUNTER → 2018-08-08 | Day surgery (SDC) | payer OTHER ==
[~2018-08-08] MED LIST changes: +ALTEPLASE 2 MG VIAL IVP PRN; +FLUMAZENIL 0.5 MG/5 ML MDV IVP PRN; +HEPARIN 10,000 UNIT/10 ML MDV (1,000 UNIT/ML) IVP PRN; +IOPAMIDOL (ISOVUE-300) 100 ML BTL ONE; +MEPERIDINE 25 MG/ML SYR IVP PRN; +MIDAZOLAM 2 MG/2 ML VIAL IVP PRN; +NALOXONE HCL 0.4 MG/ML INJ IVP PRN; +NS 1,000 ML IV SCH; +PROTAMINE SULFATE 50 MG/5 ML VIAL IVP PRN; -ceFAZolin 2 GM/DEXTROSE 100 ML IV ONE; +fentaNYL 100 MCG/2 ML INJ IVP PRN
[2018-08-08 14:15] VITALS: BP 158/66
== END | disposition home or self-care (01) ==
LOC: FIMAGING 12:46
PROVIDERS: ATTEND Internal Medicine Nephrology
DX: Z09 Encounter for follow-up examination after completed treatment for conditions other than malignant neoplasm (principal); Z99.2 Dependence on renal dialysis; Z95.828 Presence of other vascular implants and grafts; Z53.09 Procedure and treatment not carried out because of other contraindication
CPT/HCPCS: J1644; Q9967